=== PATIENT | female | born 1975 | race Hispanic/Latino ===

== ENCOUNTER → 2017-08-10 | Outpatient (CLI) | payer OTHER ==
[~2017-08-10] MED LIST: ENAL10TA PO; ESOM20CA34 PO; FOLI-114 PO; OMEG-125 PO
[2017-08-10 14:42] LABS: BASOPHILS % (AUTO) 0.6 % (0.0-5.0); HEMATOCRIT 38.5 % (36-48); LYMPHOCYTES % (AUTO) 23.3 % (21.0-51.0); MEAN CORPUSCULAR HEMOGLOBIN 27.7 pg (27.0-33.0); MEAN CORPUSCULAR VOLUME 83.7 fL (79-99); MONOCYTES % (AUTO) 5.7 % (3.0-13.0); NEUTROPHILS % (AUTO) 67.4 % (40.0-77.0); PLATELET COUNT (AUTO) 372 K/uL (130-400); RED CELL DISTRIBUTION WIDTH 14.5 % (11.0-15.5); WHITE BLOOD COUNT (AUTO) 4.3 K/uL (4.8-10.8)
[2017-08-10 15:07] LABS: ALBUMIN 3.4 g/dL (3.5-5.0); BILIRUBIN,TOTAL 0.3 mg/dL (0.2-1.0); CREATININE 0.6 mg/dL (0.5-1.5); POTASSIUM 3.9 mmol/L (3.5-5.1); TOTAL PROTEIN, SERUM 7.5 g/dL (6.0-8.3)
== END | disposition home or self-care (01) ==
LOC: RAH 14:08
PROVIDERS: ATTEND Internal Medicine
DX: Z13.220 Encounter for screening for lipoid disorders (principal); M47.26 Other spondylosis with radiculopathy, lumbar region; M48.061 Spinal stenosis, lumbar region without neurogenic claudication; M25.78 Osteophyte, vertebrae; I10 Essential (primary) hypertension; E78.2 Mixed hyperlipidemia
CPT/HCPCS: 36415; 72100; 80053; 80061; 85025

== ENCOUNTER → 2017-08-18 | Outpatient (CLI) | payer OTHER | END | disposition home or self-care (01) | LOC: RAH 15:59 | PROVIDERS: ATTEND Internal Medicine | DX: Z12.31 Encounter for screening mammogram for malignant neoplasm of breast (principal) | CPT/HCPCS: 77067 ==

== ENCOUNTER → 2017-09-06 | Outpatient (CLI) | payer OTHER | END | disposition home or self-care (01) | LOC: LAB 16:23 | PROVIDERS: ATTEND Internal Medicine | DX: R68.83 Chills (without fever) (principal) | CPT/HCPCS: 87804 ==

== ENCOUNTER → 2018-04-27 | Outpatient (CLI) | payer OTHER ==
[2018-04-27 08:44] LABS: BASOPHILS % (AUTO) 3.4 % (0.0-5.0); EOSINOPHILS % (AUTO) 2.3 % (0.0-8.0); HEMATOCRIT 40.3 % (36-48); LYMPHOCYTES % (AUTO) 20.5 % (21.0-51.0); MEAN CORPUSCULAR HEMOGLOBIN 30.9 pg (27.0-33.0); MEAN CORPUSCULAR HGB CONC 34.1 g/dL (32.0-36.0); MEAN CORPUSCULAR VOLUME 90.6 fL (79-99); MONOCYTES % (AUTO) 5.1 % (3.0-13.0); NEUTROPHILS % (AUTO) 68.7 % (40.0-77.0); PLATELET COUNT (AUTO) 370 K/uL (130-400); RED BLOOD CELL COUNT(AUTO) 4.44 MIL/uL (4.00-5.50); RED CELL DISTRIBUTION WIDTH 12.3 % (11.0-15.5); WHITE BLOOD COUNT (AUTO) 7.1 K/uL (4.8-10.8)
[2018-04-27 08:54] LABS: ALBUMIN 3.3 g/dL (3.5-5.0); BILIRUBIN,TOTAL 0.3 mg/dL (0.2-1.0); CREATININE 0.7 mg/dL (0.5-1.5); POTASSIUM 4.9 mmol/L (3.5-5.1); TOTAL PROTEIN, SERUM 7.5 g/dL (6.0-8.3)
== END | disposition home or self-care (01) ==
LOC: LAB 08:17
PROVIDERS: ATTEND Internal Medicine
DX: I10 Essential (primary) hypertension (principal); E78.2 Mixed hyperlipidemia
CPT/HCPCS: 36415; 80053; 80061; 82043; 82570; 85025

== ENCOUNTER → 2018-08-29 | Outpatient (CLI) | payer OTHER ==
[2018-08-29 09:31] LABS: BASOPHILS % (AUTO) 0.8 % (0.0-5.0); HEMATOCRIT 41.5 % (36-48); LYMPHOCYTES % (AUTO) 23.4 % (21.0-51.0); MEAN CORPUSCULAR HEMOGLOBIN 30.3 pg (27.0-33.0); MEAN CORPUSCULAR HGB CONC 33.7 g/dL (32.0-36.0); MEAN CORPUSCULAR VOLUME 89.9 fL (79-99); MONOCYTES % (AUTO) 5.7 % (3.0-13.0); NEUTROPHILS % (AUTO) 68.1 % (40.0-77.0); NUCLEATED RED BLOOD CELLS 0.1 % (0.0-0.19); PLATELET COUNT (AUTO) 395 K/uL (130-400); RED BLOOD CELL COUNT(AUTO) 4.62 MIL/uL (4.00-5.50); RED CELL DISTRIBUTION WIDTH 12.6 % (11.0-15.5); WHITE BLOOD COUNT (AUTO) 6.8 K/uL (4.8-10.8)
[2018-08-29 09:43] LABS: ALBUMIN 3.6 g/dL (3.5-5.0); BILIRUBIN,TOTAL 0.4 mg/dL (0.2-1.0); CREATININE 0.6 mg/dL (0.5-1.5); TOTAL PROTEIN, SERUM 7.9 g/dL (6.0-8.3)
== END | disposition home or self-care (01) ==
LOC: LAB 08:44
PROVIDERS: ATTEND Internal Medicine
DX: I10 Essential (primary) hypertension (principal); E78.2 Mixed hyperlipidemia
CPT/HCPCS: 36415; 80053; 80061; 82043; 85025

== ENCOUNTER → 2019-03-15 | Outpatient (CLI) | payer OTHER ==
[2019-03-15 12:07] LABS: BASOPHILS % (AUTO) 0.6 % (0.0-5.0); EOSINOPHILS % (AUTO) 1.7 % (0.0-8.0); HEMATOCRIT 37.8 % (36-48); LYMPHOCYTES % (AUTO) 27.3 % (21.0-51.0); MEAN CORPUSCULAR HEMOGLOBIN 30.7 pg (27.0-33.0); MEAN CORPUSCULAR HGB CONC 33.7 g/dL (32.0-36.0); MONOCYTES % (AUTO) 4.9 % (3.0-13.0); NEUTROPHILS % (AUTO) 65.5 % (40.0-77.0); NUCLEATED RED BLOOD CELLS 0.1 % (0.0-0.19); PLATELET COUNT (AUTO) 407 K/uL (130-400); RED BLOOD CELL COUNT(AUTO) 4.15 MIL/uL (4.00-5.50); RED CELL DISTRIBUTION WIDTH 12.7 % (11.0-15.5); WHITE BLOOD COUNT (AUTO) 8.8 K/uL (4.8-10.8)
[2019-03-15 12:12] LABS: HEMOGLOBIN A1C 5.1 % (4.0-6.0)
[2019-03-15 12:27] LABS: ALBUMIN 3.6 g/dL (3.5-5.0); BILIRUBIN,TOTAL 0.8 mg/dL (0.2-1.0); CREATININE 0.6 mg/dL (0.5-1.5); POTASSIUM 4.1 mmol/L (3.5-5.1); THYROID STIMULATING HORMONE 2.48 uIU/mL (0.36-3.74); TOTAL PROTEIN, SERUM 7.9 g/dL (6.0-8.3)
== END | disposition home or self-care (01) ==
LOC: LAB 11:02
PROVIDERS: ATTEND Internal Medicine
DX: Z13.29 Encounter for screening for other suspected endocrine disorder (principal); Z13.220 Encounter for screening for lipoid disorders; I10 Essential (primary) hypertension; E78.2 Mixed hyperlipidemia; Z83.3 Family history of diabetes mellitus
CPT/HCPCS: 36415; 80053; 80061; 82043; 83036; 84443; 85025

== ENCOUNTER → 2019-03-17 | Outpatient (CLI) | payer OTHER | END | disposition home or self-care (01) | LOC: RAH 12:38 | PROVIDERS: ATTEND Internal Medicine | DX: Z12.31 Encounter for screening mammogram for malignant neoplasm of breast (principal) | CPT/HCPCS: 77067 ==

== ENCOUNTER 2019-04-07 06:42 | Day surgery (SDC) | payer OTHER ==
[~2019-04-07] VITALS: Ht 160 cm; Wt 91.6 kg
[~2019-04-07 06:42] MED LIST changes: -ESOM20CA34 PO; -FOLI-114 PO; +MULT1CAP32 PO; -OMEG-125 PO; +SODIUM CHLORIDE 0.9% 1000ML 1,000 ML IV ONE
[2019-04-07 08:45] VITALS: BP 140/71
[2019-04-07] MEDS ORDERED: ATOR20TA65 PO (09:00)
[2019-04-07] MEDS ORDERED: OMEP40CA37 PO (09:00)
[2019-04-07 10:20] VITALS: BP 113/56
[2019-04-07 10:25] VITALS: BP 116/70
[2019-04-07 10:30] VITALS: BP 125/78
[2019-04-07 10:37] VITALS: BP 128/74
[2019-04-07 10:40] VITALS: BP 130/75
== END 2019-04-07 10:55 | disposition home or self-care (01) ==
LOC: ENDO 06:42 → DAH 06:42 → ENDO 10:55
PROVIDERS: ATTEND Internal Medicine
DX: K57.30 Diverticulosis of large intestine without perforation or abscess without bleeding (principal); K64.0 First degree hemorrhoids; K21.9 Gastro-esophageal reflux disease without esophagitis; E66.9 Obesity, unspecified; I10 Essential (primary) hypertension; E78.5 Hyperlipidemia, unspecified; Z79.899 Other long term (current) drug therapy; Z80.0 Family history of malignant neoplasm of digestive organs; Z98.51 Tubal ligation status; Z90.49 Acquired absence of other specified parts of digestive tract; Z98.890 Other specified postprocedural states; Z80.52 Family history of malignant neoplasm of bladder
CPT/HCPCS: 45378; J7030

== ENCOUNTER 2020-02-29 18:17 | Emergency (ER) | payer OTHER ==
[~2020-02-29 18:17] MED LIST changes: +ATOR20TA65 PO; +OMEP40CA13 PO; -SODIUM CHLORIDE 0.9% 1000ML 1,000 ML IV ONE
[2020-02-29 20:45] LABS: APPEARANCE,URINE SL CLOUDY (CLEAR); BILIRUBIN,URINE SMALL (NEGATIVE); COLOR,URINE YELLOW (YELLOW); GLUCOSE, URINE (UA) NEGATIVE (NEGATIVE); KETONES,URINE NEGATIVE (NEGATIVE); LEUKOCYTE ESTERASE ,URINE NEGATIVE (NEGATIVE); NITRATE,URINE POSITIVE (NEGATIVE); OCCULT BLOOD,URINE MODERATE (NEGATIVE); PH,URINE 5.5 (5.0-8.0); PROTEIN,URINE TRACE mg/dL (NEGATIVE); UROBILINOGEN,URINE 0.2 mg/dL (0.2-1.0)
[2020-02-29 20:58] LABS: RBC,URINE 26-50 /HPF (0-1)
[2020-02-29 20:59] LABS: BACTERIA,URINE Moderate /HPF (None Seen); SQUAMOUS EPITHELIAL CELL,UR Few /HPF (0-2)
[2020-02-29 21:00] LABS: MUCUS,URINE Few LPF (None Seen)
[2020-02-29] MEDS ORDERED: CEFTRIAXONE SODIUM 1 GM ONE (22:28)
== END 2020-02-29 22:51 | disposition home or self-care (01) ==
LOC: EDH 18:17
DX: N39.0 Urinary tract infection, site not specified (principal); I10 Essential (primary) hypertension; E78.00 Pure hypercholesterolemia, unspecified
CPT/HCPCS: 76856; 81001; 81025; 87077; 87088; 87186; 96372; 99284; J0696

== ENCOUNTER → 2020-03-18 | Outpatient (CLI) | payer OTHER | END | disposition home or self-care (01) | LOC: RAH 08:27 | PROVIDERS: ATTEND Internal Medicine | DX: Z12.31 Encounter for screening mammogram for malignant neoplasm of breast (principal) | CPT/HCPCS: 77067 ==

== ENCOUNTER → 2020-05-03 | Outpatient (CLI) | payer OTHER ==
[~2020-05-03] MED LIST changes: -ENAL10TA PO; +ENAL10TA18 PO
[2020-05-03 13:06] LABS: BASOPHILS % (AUTO) 0.8 % (0.0-5.0); EOSINOPHILS % (AUTO) 2.9 % (0.0-8.0); HEMATOCRIT 43.4 % (36-48); LYMPHOCYTES % (AUTO) 29.9 % (21.0-51.0); MEAN CORPUSCULAR HGB CONC 32.7 g/dL (32.0-36.0); MEAN CORPUSCULAR VOLUME 91.6 fL (79-99); MONOCYTES % (AUTO) 6.7 % (3.0-13.0); NEUTROPHILS % (AUTO) 59.4 % (40.0-77.0); PLATELET COUNT (AUTO) 498 K/uL (130-400); RED BLOOD CELL COUNT(AUTO) 4.74 MIL/uL (4.00-5.50); RED CELL DISTRIBUTION WIDTH 12.2 % (11.0-15.5); WHITE BLOOD COUNT (AUTO) 6.6 K/uL (4.8-10.8)
[2020-05-03 13:25] LABS: ALBUMIN 3.8 g/dL (3.5-5.0); BILIRUBIN,TOTAL 0.3 mg/dL (0.2-1.0); CREATININE 0.6 mg/dL (0.5-1.5); POTASSIUM 4.3 mmol/L (3.5-5.1); TOTAL PROTEIN, SERUM 7.9 g/dL (6.0-8.3)
== END | disposition home or self-care (01) ==
LOC: LAB 11:45
PROVIDERS: ATTEND Internal Medicine Gastroenterology
DX: R10.32 Left lower quadrant pain (principal)
CPT/HCPCS: 36415; 80053; 85025

== ENCOUNTER → 2022-01-27 | Outpatient (CLI) | payer OTHER, MEDICAID ==
[~2022-01-27] MED LIST changes: -OMEP40CA13 PO; +OMEP40CA21 PO
== END | disposition home or self-care (01) ==
LOC: RAH 08:44
PROVIDERS: ATTEND Nurse Practitioner Family
DX: Z00.01 Encounter for general adult medical examination with abnormal findings (principal); R92.2 Inconclusive mammogram
CPT/HCPCS: 76641; 77065

== ENCOUNTER → 2023-10-06 | Outpatient (CLI) | payer OTHER ==
[~2023-10-06] MED LIST changes: +ENAL-89 PO; -ENAL10TA18 PO
[2023-10-06 12:57] LABS: BASOPHILS # (AUTO) 0.05 K/uL (0.00-0.20); BASOPHILS % (AUTO) 0.6 % (0.0-5.0); EOSINOPHILS # (AUTO) 0.12 K/uL (0.00-0.70); EOSINOPHILS % (AUTO) 1.5 % (0.0-8.0); HEMATOCRIT 42.6 % (36-48); IMMATURE GRANULOCYTE ABSOLUTE 0.03 K/uL (0-1); LYMPHOCYTES # (AUTO) 2.3 K/uL (1.0-4.8); LYMPHOCYTES % (AUTO) 28.4 % (21.0-51.0); MEAN CORPUSCULAR HEMOGLOBIN 29.6 pg (27.0-33.0); MEAN CORPUSCULAR HGB CONC 32.9 g/dL (32.0-36.0); MEAN CORPUSCULAR VOLUME 90.1 fL (79-99); MONOCYTES # (AUTO) 0.5 K/uL (0.1-1.0); MONOCYTES % (AUTO) 5.6 % (3.0-13.0); NEUTROPHILS # (AUTO) 5.1 K/uL (1.8-7.7); NEUTROPHILS % (AUTO) 63.5 % (40.0-77.0); PLATELET COUNT (AUTO) 320 K/uL (130-400); RED BLOOD CELL COUNT(AUTO) 4.73 MIL/uL (4.00-5.50); RED CELL DISTRIBUTION WIDTH 11.9 % (11.0-15.5); WHITE BLOOD COUNT (AUTO) 8.1 K/uL (4.8-10.8)
[2023-10-06 13:21] LABS: BILIRUBIN,TOTAL 0.4 mg/dL (0.2-1.0); CREATININE 0.8 mg/dL (0.5-1.5); POTASSIUM 3.6 mmol/L (3.5-5.1); THYROID STIMULATING HORMONE 4.04 uIU/mL (0.36-3.74)
[2023-10-06 13:25] LABS: APPEARANCE,URINE CLOUDY (CLEAR); BILIRUBIN,URINE NEGATIVE (NEGATIVE); COLOR,URINE YELLOW (YELLOW); GLUCOSE, URINE (UA) NEGATIVE (NEGATIVE); KETONES,URINE NEGATIVE (NEGATIVE); LEUKOCYTE ESTERASE ,URINE 500 Leu/uL (NEGATIVE); NITRATE,URINE NEGATIVE (NEGATIVE); OCCULT BLOOD,URINE MODERATE (NEGATIVE); PROTEIN,URINE 70 mg/dL (NEGATIVE); UROBILINOGEN,URINE 0.2 mg/dL (0.2-1.0)
[2023-10-06 13:30] LABS: ADD UA MICROSCOPIC YES
[2023-10-06 13:48] LABS: BACTERIA,URINE FEW /HPF (None Seen); MUCUS,URINE RARE LPF (None Seen); RBC,URINE >100 /HPF (0-1); SQUAMOUS EPITHELIAL CELL,UR FEW /HPF (0-2); WBC CLUMP FEW /HPF (0-1); WBC,URINE TNTC /HPF (0-1)
[2023-10-06 14:22] LABS: ERYTHROCYTE SEDIMENTATION RATE 35 MM/HR (0-20)
== END | disposition home or self-care (01) ==
LOC: LAB 12:06
PROVIDERS: ATTEND Nurse Practitioner Family
DX: M17.12 Unilateral primary osteoarthritis, left knee (principal); I10 Essential (primary) hypertension; N20.0 Calculus of kidney; E78.00 Pure hypercholesterolemia, unspecified; M25.562 Pain in left knee; E55.9 Vitamin D deficiency, unspecified; E03.9 Hypothyroidism, unspecified; R73.09 Other abnormal glucose
CPT/HCPCS: 36415; 73562; 80053; 80061; 81001; 82306; 83036; 83525; 84439; 84443; 84481; 85025; 85651; 87077; 87088; 87186

== ENCOUNTER → 2023-10-26 | Outpatient (CLI) | payer OTHER | END | disposition home or self-care (01) | LOC: RAH 14:18 | PROVIDERS: ATTEND Nurse Practitioner Family | DX: M25.562 Pain in left knee (principal); M54.50 Low back pain, unspecified | CPT/HCPCS: 93926; 93971 ==

== ENCOUNTER 2024-01-11 15:12 | Emergency (ER) | payer OTHER ==
[~2024-01-11] VITALS: Ht 157.5 cm; Wt 97.5 kg
[2024-01-11 15:37] LABS: BASOPHILS # (AUTO) 0.04 K/uL (0.00-0.20); BASOPHILS % (AUTO) 0.6 % (0.0-5.0); EOSINOPHILS # (AUTO) 0.01 K/uL (0.00-0.70); EOSINOPHILS % (AUTO) 0.1 % (0.0-8.0); HEMATOCRIT 40.6 % (36-48); IMMATURE GRANULOCYTE ABSOLUTE 0.02 K/uL (0-1); LYMPHOCYTES # (AUTO) 1.3 K/uL (1.0-4.8); LYMPHOCYTES % (AUTO) 19.2 % (21.0-51.0); MEAN CORPUSCULAR HEMOGLOBIN 29.7 pg (27.0-33.0); MEAN CORPUSCULAR HGB CONC 33.3 g/dL (32.0-36.0); MEAN CORPUSCULAR VOLUME 89.4 fL (79-99); MONOCYTES # (AUTO) 0.5 K/uL (0.1-1.0); MONOCYTES % (AUTO) 6.8 % (3.0-13.0); PLATELET COUNT (AUTO) 341 K/uL (130-400); RED BLOOD CELL COUNT(AUTO) 4.54 MIL/uL (4.00-5.50); RED CELL DISTRIBUTION WIDTH 12.1 % (11.0-15.5); WHITE BLOOD COUNT (AUTO) 6.8 K/uL (4.8-10.8)
[2024-01-11] MEDS: ACETAMINOPHEN 500 MG TABLET PO ONE (15:39)
[2024-01-11 15:49] LABS: CREATININE 0.9 mg/dL (0.5-1.0); POTASSIUM 3.7 mmol/L (3.5-5.1)
[2024-01-11 15:52] LABS: SARS-CoV-2, RNA, NAAT NEGATIVE SARS CoV-2 (NEGATIVE)
[2024-01-11 15:53] LABS: RAPID GROUP A STREP negative (NEGATIVE)
[2024-01-11 15:54] LABS: BILIRUBIN,TOTAL 0.4 mg/dL (0.2-1.0); TOTAL PROTEIN, SERUM 8.6 g/dL (6.0-8.3)
[2024-01-11 16:00] LABS: INFLUENZA TYPE B Negative For Type B (NEGATIVE)
[2024-01-11 16:04] LABS: INFLUENZA TYPE A Positive For Type A (NEGATIVE)
[2024-01-11 16:50] VITALS: TEMP 100.3
[2024-01-11] MEDS: OSELTAMIVIR PHOSPHATE 75 MG CAP PO ONE (17:26)
[2024-01-11] MEDS: 0.9%NACL 1000ML 1,002 ML IV ONE (17:27)
[2024-01-11] MEDS ORDERED: AZIT500T4 PO (18:57)
[2024-01-11] MEDS ORDERED: OSEL75 PO (18:57)
[2024-01-11 19:08] LABS: APPEARANCE,URINE CLOUDY (CLEAR); BILIRUBIN,URINE NEGATIVE (NEGATIVE); COLOR,URINE LIGHT-YELLOW (YELLOW); GLUCOSE, URINE (UA) NEGATIVE (NEGATIVE); KETONES,URINE 10 mg/dL (NEGATIVE); LEUKOCYTE ESTERASE ,URINE 500 Leu/uL (NEGATIVE); NITRATE,URINE NEGATIVE (NEGATIVE); OCCULT BLOOD,URINE MODERATE (NEGATIVE); PH,URINE 6.5 (5.0-8.0); PROTEIN,URINE 10 mg/dL (NEGATIVE); UROBILINOGEN,URINE 0.2 mg/dL (0.2-1.0)
[2024-01-11 19:10] LABS: ADD UA MICROSCOPIC YES
[2024-01-11 19:14] LABS: BACTERIA,URINE RARE /HPF (None Seen); MUCUS,URINE RARE LPF (None Seen); SQUAMOUS EPITHELIAL CELL,UR FEW /HPF (0-2); WBC,URINE TNTC /HPF (0-1)
[2024-01-11 19:29] VITALS: BP 118/78; PULSE 73; RESP 20; O2SAT 95
== END 2024-01-11 19:31 | disposition home or self-care (01) ==
LOC: EDH 15:12
DX: R50.9 Fever, unspecified (principal); M79.10 Myalgia, unspecified site; R09.81 Nasal congestion; I10 Essential (primary) hypertension; E78.00 Pure hypercholesterolemia, unspecified; Z20.822 Contact with and (suspected) exposure to COVID-19; Z79.899 Other long term (current) drug therapy; Z90.49 Acquired absence of other specified parts of digestive tract; Z98.890 Other specified postprocedural states
CPT/HCPCS: 99285; 71045; 87635; 80053; 85025; 87040 ×2; 87077; 87088; 87186; 87880; 87804 ×2; 83605; 81001; 36415; J7030

== ENCOUNTER → 2024-04-18 | Outpatient (CLI) | payer OTHER ==
[~2024-04-18] MED LIST changes: +AZIT500T4 PO; +OSEL75 PO
[2024-04-18 08:39] LABS: BASOPHILS # (AUTO) 0.04 K/uL (0.00-0.20); BASOPHILS % (AUTO) 0.7 % (0.0-5.0); EOSINOPHILS % (AUTO) 1.8 % (0.0-8.0); HEMATOCRIT 37.4 % (36-48); IMMATURE GRANULOCYTE ABSOLUTE 0.02 K/uL (0-1); LYMPHOCYTES # (AUTO) 2.2 K/uL (1.0-4.8); LYMPHOCYTES % (AUTO) 39.1 % (21.0-51.0); MEAN CORPUSCULAR HEMOGLOBIN 29.8 pg (27.0-33.0); MEAN CORPUSCULAR HGB CONC 32.9 g/dL (32.0-36.0); MEAN CORPUSCULAR VOLUME 90.6 fL (79-99); MONOCYTES # (AUTO) 0.3 K/uL (0.1-1.0); MONOCYTES % (AUTO) 5.5 % (3.0-13.0); NEUTROPHILS % (AUTO) 52.5 % (40.0-77.0); PLATELET COUNT (AUTO) 422 K/uL (130-400); RED BLOOD CELL COUNT(AUTO) 4.13 MIL/uL (4.00-5.50); RED CELL DISTRIBUTION WIDTH 12.3 % (11.0-15.5); WHITE BLOOD COUNT (AUTO) 5.7 K/uL (4.8-10.8)
[2024-04-18 08:52] LABS: APPEARANCE,URINE CLOUDY (CLEAR); BILIRUBIN,URINE NEGATIVE (NEGATIVE); COLOR,URINE YELLOW (YELLOW); GLUCOSE, URINE (UA) NEGATIVE (NEGATIVE); KETONES,URINE NEGATIVE (NEGATIVE); LEUKOCYTE ESTERASE ,URINE LARGE Leu/uL (NEGATIVE); NITRATE,URINE NEGATIVE (NEGATIVE); OCCULT BLOOD,URINE LARGE (NEGATIVE); PROTEIN,URINE 30 mg/dL (NEGATIVE); UROBILINOGEN,URINE 0.2 mg/dL (0.2-1.0)
[2024-04-18 08:52] LABS: HEMOGLOBIN A1C 4.9 % (4.0-6.0)
[2024-04-18 08:56] LABS: ADD UA MICROSCOPIC YES
[2024-04-18 09:05] LABS: BACTERIA,URINE Moderate /HPF (None Seen); WBC,URINE 26-50 /HPF (0-1)
[2024-04-18 09:08] LABS: ALBUMIN 3.7 g/dL (3.5-5.0); BILIRUBIN,TOTAL 0.4 mg/dL (0.2-1.0); CREATININE 0.9 mg/dL (0.5-1.0); POTASSIUM 3.8 mmol/L (3.5-5.1); THYROID STIMULATING HORMONE 5.58 uIU/mL (0.36-3.74); TOTAL PROTEIN, SERUM 8.2 g/dL (6.0-8.3)
[2024-04-18 09:42] LABS: ERYTHROCYTE SEDIMENTATION RATE 53 MM/HR (0-30)
== END | disposition home or self-care (01) ==
LOC: LAB 08:08
PROVIDERS: ATTEND Nurse Practitioner Family
DX: M47.816 Spondylosis without myelopathy or radiculopathy, lumbar region (principal); M48.05 Spinal stenosis, thoracolumbar region; M54.50 Low back pain, unspecified; I87.8 Other specified disorders of veins
CPT/HCPCS: 36415; 72100; 80053; 80061; 81001; 82306; 83036; 83525; 84439; 84443; 84481; 85025; 85651; 87086; 87186

== ENCOUNTER → 2024-05-24 | Outpatient (CLI) | payer OTHER | END | disposition home or self-care (01) | LOC: RAH 15:22 | PROVIDERS: ATTEND Nurse Practitioner Family | DX: M47.816 Spondylosis without myelopathy or radiculopathy, lumbar region (principal); M48.05 Spinal stenosis, thoracolumbar region; M54.50 Low back pain, unspecified | CPT/HCPCS: 72148 ==

== ENCOUNTER 2024-05-31 19:40 | Emergency (ER) | payer OTHER ==
[~2024-05-31] VITALS: Ht 157.5 cm; Wt 99.8 kg
[~2024-05-31 19:40] MED LIST changes: -AZIT500T4 PO; -ENAL-89 PO; +IBUP-2077 PO; +LOSA50TA64 PO; -MULT1CAP32 PO; -OMEP40CA21 PO; -OSEL75 PO; +VITAMIN D3 PO
[2024-05-31 20:33] VITALS: BP 137/81; PULSE 90; RESP 20; TEMP 98.3; O2SAT 97
[2024-05-31] MEDS ORDERED: KETO10TA2 PO (20:36)
== END 2024-05-31 20:37 | disposition home or self-care (01) ==
LOC: EDH 19:40
DX: S83.91XA Sprain of unspecified site of right knee, initial encounter (principal); S80.01XA Contusion of right knee, initial encounter; E78.00 Pure hypercholesterolemia, unspecified; I10 Essential (primary) hypertension; Z79.899 Other long term (current) drug therapy; Z90.49 Acquired absence of other specified parts of digestive tract; Z98.51 Tubal ligation status; W18.39XA Other fall on same level, initial encounter; Y93.89 Activity, other specified; Y92.89 Other specified places as the place of occurrence of the external cause; Y99.8 Other external cause status
CPT/HCPCS: 73562

== ENCOUNTER → 2024-10-06 | Outpatient (CLI) | payer OTHER ==
[~2024-10-06] MED LIST changes: +KETO10TA2 PO
[2024-10-06 08:43] LABS: BILIRUBIN,URINE NEGATIVE (NEGATIVE); COLOR,URINE YELLOW (YELLOW); GLUCOSE, URINE (UA) NEGATIVE (NEGATIVE); KETONES,URINE NEGATIVE (NEGATIVE); LEUKOCYTE ESTERASE ,URINE 500 Leu/uL (NEGATIVE); NITRATE,URINE NEGATIVE (NEGATIVE); OCCULT BLOOD,URINE SMALL (NEGATIVE); PROTEIN,URINE 50 mg/dL (NEGATIVE); UROBILINOGEN,URINE 0.2 mg/dL (0.2-1.0)
[2024-10-06 08:46] LABS: BASOPHILS # (AUTO) 0.05 K/uL (0.00-0.20); BASOPHILS % (AUTO) 0.9 % (0.0-5.0); EOSINOPHILS # (AUTO) 0.09 K/uL (0.00-0.70); EOSINOPHILS % (AUTO) 1.6 % (0.0-8.0); HEMATOCRIT 38.8 % (36-48); IMMATURE GRANULOCYTE ABSOLUTE 0.01 K/uL (0-1); LYMPHOCYTES # (AUTO) 1.9 K/uL (1.0-4.8); LYMPHOCYTES % (AUTO) 32.7 % (21.0-51.0); MEAN CORPUSCULAR HEMOGLOBIN 29.3 pg (27.0-33.0); MEAN CORPUSCULAR HGB CONC 32.7 g/dL (32.0-36.0); MEAN CORPUSCULAR VOLUME 89.4 fL (79-99); MONOCYTES # (AUTO) 0.3 K/uL (0.1-1.0); MONOCYTES % (AUTO) 5.9 % (3.0-13.0); NEUTROPHILS # (AUTO) 3.4 K/uL (1.8-7.7); NEUTROPHILS % (AUTO) 58.7 % (40.0-77.0); PLATELET COUNT (AUTO) 394 K/uL (130-400); RED BLOOD CELL COUNT(AUTO) 4.34 MIL/uL (4.00-5.50); WHITE BLOOD COUNT (AUTO) 5.8 K/uL (4.8-10.8)
[2024-10-06 08:47] LABS: ADD UA MICROSCOPIC YES; APPEARANCE,URINE HAZY (CLEAR)
[2024-10-06 08:55] LABS: BACTERIA,URINE FEW /HPF (None Seen); MUCUS,URINE FEW LPF (None Seen); RBC,URINE 26-50 /HPF (0-1); SQUAMOUS EPITHELIAL CELL,UR FEW /HPF (0-2); WBC,URINE TNTC /HPF (0-1)
[2024-10-06 09:09] LABS: HEMOGLOBIN A1C 5.2 % (4.0-6.0)
[2024-10-06 09:26] LABS: ALBUMIN 3.7 g/dL (3.5-5.0); BILIRUBIN,TOTAL 0.3 mg/dL (0.2-1.0); CREATININE 0.8 mg/dL (0.5-1.0); POTASSIUM 4.2 mmol/L (3.5-5.1); THYROID STIMULATING HORMONE 4.54 uIU/mL (0.36-3.74); TOTAL PROTEIN, SERUM 8.4 g/dL (6.0-8.3)
[2024-10-06 11:10] LABS: ERYTHROCYTE SEDIMENTATION RATE 64 MM/HR (0-30)
== END | disposition home or self-care (01) ==
LOC: LAB 10-05 16:24
PROVIDERS: ATTEND Nurse Practitioner Family
DX: I10 Essential (primary) hypertension (principal); E78.00 Pure hypercholesterolemia, unspecified; E55.9 Vitamin D deficiency, unspecified; E03.9 Hypothyroidism, unspecified; N95.1 Menopausal and female climacteric states; R53.82 Chronic fatigue, unspecified; N39.0 Urinary tract infection, site not specified
CPT/HCPCS: 36415; 80053; 80061; 81001; 82306; 83036; 83525; 84439; 84443; 84481; 85025; 85651; 87086

== ENCOUNTER 2024-11-29 20:37 | Inpatient (IN) | payer OTHER ==
[~2024-11-29] VITALS: Ht 157.5 cm; Wt 103.9 kg
[2024-11-29 21:01] LABS: ADD UA MICROSCOPIC YES; APPEARANCE,URINE CLOUDY (CLEAR); BILIRUBIN,URINE NEGATIVE (NEGATIVE); COLOR,URINE LIGHT-YELLOW (YELLOW); GLUCOSE, URINE (UA) NEGATIVE (NEGATIVE); KETONES,URINE NEGATIVE (NEGATIVE); LEUKOCYTE ESTERASE ,URINE 500 Leu/uL (NEGATIVE); NITRATE,URINE NEGATIVE (NEGATIVE); OCCULT BLOOD,URINE MODERATE (NEGATIVE); PH,URINE 6.5 (5.0-8.0); PROTEIN,URINE NEGATIVE (NEGATIVE); UROBILINOGEN,URINE 0.2 mg/dL (0.2-1.0)
[2024-11-29 21:06] LABS: BACTERIA,URINE RARE /HPF (None Seen); MUCUS,URINE RARE LPF (None Seen); SQUAMOUS EPITHELIAL CELL,UR RARE /HPF (0-2); WBC,URINE 26-50 /HPF (0-1); YEAST,URINE BUDDING FEW /HPF (None Seen)
--- NOTE | 2024-11-29 21:15 | ERN ---
ED Note History of Present Illness Stated Complaint: C/O PAIN TO RT UPPER BACK Chief Complaint: Back Pain-No Injury Time Seen by MD: 20:54 Dictation: This is a 49-year-old female who presented to the emergency room with complaints of right-sided flank pain for the past couple of days. Denied any fever chills or rigors no obvious gross hematuria. She was recently treated a few weeks ago for a UTI. She has pain mostly on the right side upper flank area and CVA angle. Pain has been excruciating for the past 2 days but worse today. History of lifting any heavy weights or chronic back pain. She has a history of kidney stones many years ago but does not recall the details Temperature 99 pulse 78 respirations 20 blood pressure 156/76 with a pulse oximetry of 95% on room air Her chronic medical problems include hypertension high cholesterol and morbid obesity Allergies: Coded Allergies: No Known Allergies (Unverified Allergy, Unknown, 02/26/17) Home Meds Active Scripts Ketorolac Tromethamine (Ketorolac Tromethamine) 10 Mg Tablet, 10 MG PO BID for 5 Days, #10 TAB Prov:LUIS ALDANA 05/31/24 Reported Medications [Vitamin D3] No Conflict Check, 1000 MG PO AM 05/31/24 Ibuprofen (Ibuprofen 800 mg Tab) 800 Mg Tab, 800 MG PO Q6H PRN for PAIN, TAB 05/30/24 Losartan Potassium (Losartan Potassium) 50 Mg Tablet, 50 MG PO HS, TAB 05/30/24 Atorvastatin Calcium (Atorvastatin Calcium) 20 Mg Tablet, 20 MG PO HS, TAB 04/07/19 Past Medical History Past Medical History: High Cholesterol, Hypertension Surgical History: Appendectomy, Other Surgical History Other: UTERUS ABLATION; TUBAL LIGATION Family History: Negative Social History: Negative History: Not Applicable RN Note Reviewed/Agreed w/PFSH: Yes Review of System Dictation Constitutional: Negative for fever,chills, and weight loss Eyes: Negative for injury, pain,redness, and discharge ENT: Negative for injury,pain or swelling Cardiovascular: Negative for chest pain, palpitations, and edema Respiratory: Negative for shortness of breath, cough, and wheezing, Abdomen/GI: Negative for abdominal pain, nausea, vomiting, diarrhea, and constipation Back: Negative for injury and pain : Negative for injury, bleeding and discharge positive for medial right flank pain MS/Extremity: Negative for injury and deformity Skin: Negative for rash, and discoloration Neuro: Negative for headache, weakness, numbness, tingling, and seizure Psych: Negative for suicide ideation, homicidal ideation, and hallucinations Initial Vital Sign VS Vital Signs Date Time Temp Pulse Resp B/P (MAP) Pulse Ox O2 Delivery O2 Flow Rate FiO2 11/29/24 20:40 99.0 78 20 156/76 95 Room Air 11/30/24 00:01 0 21 Physical Exam Dictation General: awake, alert, NAD morbidly obese uncomfortable but not in distress Head/Face: Normocephalic, atraumatic Eyes: PERRL, EOMI, vision at baseline ENT: oral cavity clear, TMs clear, no signs of infection Neck: Trachea midline, supple, no nuchal rigidity Cardiovascular: RRR, normal S1/S2, No MRGs, no JVD Respiratory: CTAB, no respiratory distress, No rales or wheezes Abdomen: Soft, non-tender, non-distended, normal bowel sounds, no guarding or rebound. Positive for CV angle tenderness Skin: Warm, dry, normal turgor, no rash MS/Extremity: Pulses equal, no cyanosis, neurovascular intact, FROM Neuro: COAx4, GCS 15, strength 5/5, CN 2-12 intact, normal cerebellar exam, normal gait, Psych: Normal behavior, mood, and affect normal Extremities-trace edema without any palpable cords, Homans sign is negative Results (Laboratory/Radiology) Laboratory/Radiology Laboratory Tests Test 11/29/24 20:45 Urine Color LIGHT-YELLOW (YELLOW) Urine Appearance CLOUDY (CLEAR) H Urine pH 6.5 (5.0-8.0) Urine Specific [place] 1.010 (1.001-1.031) Urine Protein NEGATIVE mg/dL (NEGATIVE) Urine Glucose (UA) NEGATIVE mg/dL (NEGATIVE) Urine Ketones NEGATIVE mg/dL (NEGATIVE) Urine Occult Blood MODERATE (NEGATIVE) H Urine Nitrate NEGATIVE (NEGATIVE) Urine Bilirubin NEGATIVE mg/dL (NEGATIVE) Urine Urobilinogen 0.2 mg/dL (0.2-1.0) Urine Leukocyte Esterase 500 Rhiannon/uL (NEGATIVE) H Urine RBC 11-25 /HPF (0-1) H Urine WBC 26-50 /HPF (0-1) H Urine Squamous Epithelial Cells RARE /HPF (0-2) Urine Bacteria RARE /HPF (None Seen) Urine Yeast FEW /HPF (None Seen) Labs Reviewed?: Yes ED Course ED Course Orders Procedure Category Date Status Time Urinalysis Profile LAB 11/29/24 Complete 20:43 Culture Urine DAMIEN 11/29/24 In Process 21:02 0.9% Nacl 500ml PHA 11/29/24 Complete Iv.Soln (Ns 500ml 21:30 Ketorolac PHA 11/29/24 Complete Tromethamine 30mg/Ml 21:30 Ceftriaxone 1g Vial PHA 11/29/24 Complete (Rocephine 1g Inj) 23:00 Morphine 2mg Syg PHA 11/29/24 Complete (Morphine 2mg Syg) 23:00 Ct Abd/Pel Wo Con CT 11/29/24 Taken Renal/Appy 23:03 Current Medications Medications (Trade) Dose Ordered Sig/Nuria Route PRN Reason Start Time Stop Time Status Last Admin Dose Admin Ceftriaxone Sodium (ROCEphine 1G INJ) 1 gm ONCE ONCE IVPB 11/29/24 23:00 11/29/24 23:05 DC 11/29/24 23:58 Ketorolac Tromethamine (toRADol) 30 mg ONCE ONCE IVP 11/29/24 21:30 11/29/24 21:31 DC 11/29/24 23:58 Morphine Sulfate (morPHINE 2MG SYG) 2 mg ONCE ONCE IVP 11/29/24 23:00 11/29/24 23:05 DC 11/29/24 23:57 Sodium Chloride 500 ml @ 0 mls/hr ONCE ONCE IV 11/29/24 21:30 11/29/24 21:31 DC 11/29/24 23:58 Vital Signs Date Time Temp Pulse Resp B/P (MAP) Pulse Ox O2 Delivery O2 Flow Rate FiO2 11/30/24 00:01 99.0 78 18 148/72 98 Room Air* 0 21 11/29/24 20:40 99.0 78 20 156/76 95 Room Air We will perform diagnostic labs, advanced imaging and administer medications according to the patient's complaint. Once the results are available, will review and personally interpreted the labs to rule out any acute life- threatening emergency the trach require immediate intervention and treatment. I will then re-evaluate the patient after treatment and diagnostic exams have return to determine whether the patient requires any further testing, can safely be discharged home or need further admission to hospital for additional catherine tment and evaluation. Reviewed urinalysis which is positive for blood and leuko esterase. WBCs are increased suggestive of a UTI. CT scan of the abdomen and pelvis renal stone protocol revealed a very large staghorn shaped calculus on the right side Due to complicated UTI, and the size of the stone with some hydronephrosis on the right side, I recommended admission to the hospital for pain control, IV antibiotic therapy as well as urologist evaluation. She was agreeable 12:30 a.m. patient accepted by michelle mid-level provider for [facility] hospitalist group for admission and further management Medical Decision Making MDM MDM: Differential diagnosis: Pyelonephritis, lumbar radiculopathy, nephrolithiasis with renal colic, diverticulosis Rationale: Tests considered and ordered secondary to shared decision making include: labs, ECG and radiology Previous outside records reviewed: Old ER visits. Risk of complication and/or morbidity or mortality of patient management: None Medications-Per medication reconciliation Need for hospitalization: Patient does meet criteria for hospitalization. Need for emergency major/minor surgery: No There are no social concerns with this patient. Prescription drug management Prescriptions will include symptomatic care Patient's prior external medical records from other ER visits were reviewed by me as indicated. Prior testing and results from previous visits were reviewed. Prior tests were taken into account with medical decision making and resource utilization, independent historian/historians were used to obtain complete medical history. I independently interpreted the test that were performed, results were reviewed by me and considered findings on radiology if ordered. Medical management and examination interpretation discussions were had by me with other qualified healthcare professionals as indicated for the patient's care. Problem List Problem List: (1) Complicated urinary tract infection (2) Staghorn kidney stones (3) Hematuria (4) Right flank pain DX & DISP Disposition: Inpatient Decision to Admit Time: 00:22 Departure Impression: Primary Impression: Complicated urinary tract infection Additional Impressions: Staghorn kidney stones, Right flank pain Condition: Stable Additional Instructions: Patient was informed of all the diagnostic labs and procedures conducted in the emergency room today and demonstrated understanding of the results. I pe rsonally reviewed and interpreted all the diagnostic exams performed in the ER today. The patient will be admitted to the hospital for further treatment and evaluation. Disposition-admit to facility Condition-stable/guarded Course-uncertain at this time Pain status-decreased Assessment-exam unchanged Admission Certification- I certify that the patients status is appropriate and is based on my best clinical judgment and the patient's condition as documented in the medical records Referrals: MK MADERA (PCP) LUZ PEREYRA MD Nov 29, 2024 21:15
[2024-11-29] MEDS: morPHINE 2 MG SYG IVP ONE (23:57)
[2024-11-29] MEDS: ketOROlac 30MG VIAL (30MG/ML) IVP ONE (23:58)
[2024-11-29] MEDS: 0.9% NACL 500ML IV.SOLN 500 ML IV ONE (23:58)
[2024-11-29] MEDS: cefTRIAXone 1G VIAL IVPB ONE (23:58)
--- NOTE | 2024-11-30 00:23 | HMCIMG ---
CT ABD/PEL WO CON RENAL/APPY HISTORY: Right flank pain COMPARISON: None TECHNIQUE: Multiple sequential axial images of the abdomen and pelvis were obtained from the dome of the diaphragm through symphysis pubis. Patient was not given contrast through intravenous route. Oral contrast was not given. FINDINGS: No pleural effusion is seen bilaterally. There is no evidence of parenchymal disease or pulmonary nodule of the visualized lower lungs. Degenerative changes of the thoracolumbar spine are present. The heart is not enlarged. The liver, spleen, adrenal glands and pancreas are unremarkable. No hydronephrosis is seen on the left. There is a 3 cm right staghorn renal calculus. Mild right hydronephrosis is seen. Fecal material is seen in the colon. There are normal size retroperitoneal and mesenteric lymph nodes. No ascites is seen. The appendix is not seen. No definite CT evidence of acute sinusitis is seen. There is right ovarian cyst measuring 4.6 cm. Pelvic sidewalls are symmetric bilaterally. Bladder is well distended without wall thickening. IMPRESSION: 1. There is a 3 cm right staghorn renal calculus. Mild right hydronephrosis is seen. CT was performed with one or more following dose reduction techniques: automated exposure control, adjustment of the mA and kv according to patient's size, or use of a iterative reconstruction technique.
[2024-11-30] MEDS ORDERED: acetaMINOPHEN 325 MG TAB PO PRN (02:30)
[2024-11-30] MEDS ORDERED: HYDROcodone/APAP 5/325 1 TAB TABLET PO PRN (02:30)
[2024-11-30] MEDS ORDERED: ondanSETRON 4MG INJ IV PRN (02:30)
[2024-11-30] MEDS ORDERED: hydrALAZine 20MG/ML VIAL IV PRN ×2 (02:30→03:30)
--- NOTE | 2024-11-30 03:14 | HP ---
[facility] Date of Service: Nov 30, 2024 Time of Service: 02:51 PCP: Isaías Pemberton HISTORY OF PRESENT ILLNESS: This is a 49 year old female with past medical history of hyperlipidemia,hypertension and kidney stones who presents to the Ed for com plaints of right sided flank pain for the past 4 days .Patient states she has similar problems 3 weeks ago and went to see her PCP for which she was told she has a UTI and started on antibiotic.As per patient she completed the treatment however pain came back 4 days ago and pain intensity has been gradually increasing and persistent so she decided to come to the ED.Patient today pain is sharp.Patient reports she been taking Ibuprofen and alternating with Tylenol but to no relief. Seen and examined patient in the ED awake ,alert and coherent.Patient denies fever, chills, nausea, vomiting, chest pain, palpitation and shortness of suki aths. Latest vital signs temperature 99, heart rate 78, blood pressure 148/72 saturation 98% on room air. Urinalysis consistent with urinary tract infection. CT abdomen and pelvis without contrast result revealed there is a 3 cm right staghorn renal calculus. Mild right hydronephrosis is seen. While in the ER patient received 500 bolus of NS, Toradol 30 mg IV, Rocephin 1 g IV, morphine sulfate 2 mg IV. No labs ordered at this time. We will admit patient for further medical management. REVIEW OF SYSTEMS CONSTITUTIONAL: Denies fevers, chills, or night sweats. No unintentional weight loss reported. NEUROLOGICAL: Denies headache, amaurosis fugax, motor weakness, sensory deficit, vertigo/spinning sensation, gait abnormalities, or tremors. ENT: No hearing loss, otalgia, otorrhea, rhinitis, rhinorrhea, hoarseness, or sore throat. CARDIOVASCULAR: Denies any exertional angina, dyspnea on exertion, orthopnea, paroxysmal nocturnal dyspnea, palpitations, life-threatening arrhythmias, claudication. PULMONARY: Denies any shortness of breath, cough, phlegm/sputum, hemoptysis, pleuritic chest pain. SLEEP: Denies morning headaches, daytime somnolence or napping. Denies difficulty falling asleep, staying asleep, waking from sleep. Denies knowledge of snoring. GASTROINTESTINAL: Denies any type of dysphagia to either liquids or solids. Denies nausea, vomiting, pyrosis, early satiety, abdominal pain, diarrhea, constipation, or changes in stool consistency or caliber. Denies coffee-ground emesis, hematemesis, hematochezia, or melanotic stools. GENITOURINARY: Complain of right flank pain Denies frequency, urgency, nocturia, hematuria or incontinence (Storage/Irritative symptoms.) Low urinary stream, straining to void, urinary intermittency or hesitancy, splitting of the voiding stream, terminal dribbling. ENDOCRINOLOGIC: Denies polyuria, polydipsia, polyphagia or heat/cold intolerances. HEMATOLOGIC: Denies thrombophilia/previous clots, or coagulopathy/bleeding disorders. ONCOLOGIC: Denies personal history of malignancy. DERMATOLOGIC: Denies rashes or pruritus. PSYCHIATRIC: Denies any suicidal or homicidal ideation. Denies hallucinations. PAST MEDICAL HISTORY: [ Hyperlipidemia, hypertension and kidney stones ] PAST SURGICAL HISTORY: [ Appendectomy, uterus ablation, tubal ligation ] PAST SOCIAL HISTORY: [ Patient lives alone. Patient denies alcohol tobacco and recreational drug use ] FAMILY HISTORY: [Hypertension, and cancer ] Coded Allergies: No Known Allergies (Unverified Allergy, Unknown, 02/26/17) PHYSICAL EXAM GENERAL APPEARANCE: The patient is awake, alert, and oriented, in no acute cardiopulmonary distress. NEUROLOGICAL: Cranial nerves II-XII grossly intact. Motor is 5/5 in bilateral upper and lower extremities proximal to distal. No sensory deficits. HEENT: Face is symmetric. Pupils are equal and reactive. Extraocular movements are intact. NECK: Supple. No JVD. No thyromegaly. No submental, submandibular, pre- /postauricular, occipital or supraclavicular lymphadenopathy. CHEST: Normal chest expansion. No Telemetry. LUNGS: Absence of any rales, rhonchi or any wheezing. CARDIOVASCULAR: Regular. S1 and S2 normal. No appreciable rubs, murmurs or gallops. ABDOMEN: Soft, nontender, and nondistended. There is no rebound, voluntary guarding, or rigidity. : Deferred. No Grace. EXTREMITIES: Non-edematous and not cyanotic. No clubbing. Good capillary refill. SKIN: No skin breakdown. Vital Sign (Last 24 Hours) 11/30/24 00:01 Temp 99.0 Pulse 78 Resp 18 B/P (MAP) 148/72 Pulse Ox 98 O2 Delivery Room Air* O2 Flow Rate 0 FiO2 21 LABS: Laboratory: Test 11/29/24 20:45 Range/Units Urine Color LIGHT-YELLOW YELLOW Urine Appearance CLOUDY H CLEAR Urine pH 6.5 5.0-8.0 Urine Specific [place] 1.010 1.001-1.031 Urine Protein NEGATIVE NEGATIVE mg/dL Urine Glucose (UA) NEGATIVE NEGATIVE mg/dL Urine Ketones NEGATIVE NEGATIVE mg/dL Urine Occult Blood MODERATE H NEGATIVE Urine Nitrate NEGATIVE NEGATIVE Urine Bilirubin NEGATIVE NEGATIVE mg/dL Urine Urobilinogen 0.2 0.2-1.0 mg/dL Urine Leukocyte Esterase 500 H NEGATIVE Rhiannon/uL Urine RBC 11-25 H 0-1 /HPF Urine WBC 26-50 H 0-1 /HPF Urine Squamous Epithelial Cells RARE 0-2 /HPF Urine Bacteria RARE None Seen /HPF Urine Yeast FEW None Seen /HPF Current Medications Medications (Trade) Dose Ordered Sig/Nuria Route PRN Reason Start Time Stop Time Status Last Admin Dose Admin Acetaminophen (TYLenol 325MG TAB) 650 mg Q4H PRN PO MILD PAIN (1-3) 11/30/24 02:30 12/30/24 02:29 Acetaminophen (TYLenol 325MG TAB) 650 mg Q6H PRN PO TEMPERATURE GREATER THAN 101.5 11/30/24 02:30 12/30/24 02:29 Acetaminophen/ Hydrocodone Bitart (NORco 5/325MG) 1 tab Q4H PRN PO MODERATE PAIN (4-6) 11/30/24 02:30 12/05/24 02:29 Acetaminophen/ Hydrocodone Bitart (NORco 5/325MG) 2 tab Q4H PRN PO SEVERE PAIN (7-10) 11/30/24 02:30 12/05/24 02:29 Ceftriaxone Sodium 1 gm/ Sodium Chloride 50 ml @ 100 mls/hr BID IV 11/30/24 09:00 12/10/24 08:59 UNV Ceftriaxone Sodium (ROCEphine 1G INJ) 1 gm BID IVPB 11/30/24 09:00 12/10/24 08:59 Famotidine (Pepcid 20mg Vial) 20 mg BID IV 11/30/24 09:00 12/30/24 08:59 Hydralazine HCl (APRESOLine 20MG INJ) 10 mg Q6H PRN IV For:SBP above 160;DBP above 90 11/30/24 02:30 12/30/24 02:29 Ondansetron HCl (zoFRAN 4MG INJ) 4 mg Q6H PRN IV NAUSEA/VOMITING 11/30/24 02:30 12/30/24 02:29 DIAGNOSTICS / RADIOLOGY: [ ] ASSESSMENT: Acute complicated urinary tract infection POA Right staghorn renal calculus with hydronephrosis per CT POA Hypertension POA Morbid obesity POA PLAN: We will admit patient in medical surgical floor We will start on heart healthy diet We will start patient on Rocephin 1 g IV b.i.d. for empiric coverage We will start on Famotidine 20 mg IV bid for GI prophylaxis We will replace electrolytes as needed per protocol We will add prn medication for fever,pain,cough , nausea and vomiting We will reconcile home meds once medlist available We will seek Urology consultation We will request labs in am Further orders to follow depending on above results Case discussed with attending physician and came up with above treatment and plan of care. ADVANCED CARE PLANNING 1. Which of the following were discussed? Hospice Care - No Therapeutic options - Yes Advance Directives - No Other discussions - 2. Discussed with who? Patient 3. Voluntary nature of this service was explained to the patient? Yes 4. Amount of time spent - ___22____ 5. Reviewed by Physician? (if this service was performed by NPP) Yes ADDENDUM: ATTENDING PHYSICIAN ATTESTATION: I have reviewed the [facility]'s plan. I have independently seen, reviewed the chart and made my own assessment of the patient. See my addendum for updates to the [facility]'s medical plan MD ZULLY Dong [facility] Nov 30, 2024 03:14 АЛЕКСАНДР CONRAD MD Nov 30, 2024 13:48
--- NOTE | 2024-11-30 03:45 | NUR ---
PATIENT REPORT GIVEN TO MARTÍN DEL CASTILLO
[2024-11-30 03:55] VITALS: BP 157/83; PULSE 64; RESP 17; TEMP 97.4
--- NOTE | 2024-11-30 03:55 | NUR ---
admit note admit to room 406 via stretcher from er, patient awake, alert, ox3, no family at bedside, teach patient plan of care, pain management and expected outcome, patient verbalizes understanding via teach back
[2024-11-30 06:37] LABS: BASOPHILS # (AUTO) 0.04 K/uL (0.00-0.20); BASOPHILS % (AUTO) 0.8 % (0.0-5.0); EOSINOPHILS # (AUTO) 0.08 K/uL (0.00-0.70); EOSINOPHILS % (AUTO) 1.6 % (0.0-8.0); HEMATOCRIT 34.8 % (36-48); LYMPHOCYTES # (AUTO) 2.2 K/uL (1.0-4.8); MEAN CORPUSCULAR HEMOGLOBIN 30.1 pg (27.0-33.0); MEAN CORPUSCULAR HGB CONC 32.8 g/dL (32.0-36.0); MEAN CORPUSCULAR VOLUME 91.8 fL (79-99); MONOCYTES # (AUTO) 0.3 K/uL (0.1-1.0); MONOCYTES % (AUTO) 6.1 % (3.0-13.0); NEUTROPHILS # (AUTO) 2.4 K/uL (1.8-7.7); NEUTROPHILS % (AUTO) 47.5 % (40.0-77.0); PLATELET COUNT (AUTO) 372 K/uL (130-400); RED BLOOD CELL COUNT(AUTO) 3.79 MIL/uL (4.00-5.50); RED CELL DISTRIBUTION WIDTH 12.2 % (11.0-15.5); WHITE BLOOD COUNT (AUTO) 5.1 K/uL (4.8-10.8)
[2024-11-30 06:52] LABS: INR <= 0.93 (0.85-1.15); PROTHROMBIN TIME 9.6 SEC (9.6-11.6)
[2024-11-30 06:53] LABS: PARTIAL THROMBOPLASTIN TIME 30.1 SEC (26.3-35.5)
[2024-11-30 06:55] LABS: BILIRUBIN,TOTAL 0.2 mg/dL (0.2-1.0); CREATININE 0.7 mg/dL (0.5-1.0)
[2024-11-30 08:00] VITALS: O2SAT 99
[2024-11-30 08:20] VITALS: BP 131/79; PULSE 65; RESP 19; TEMP 98
[2024-11-30] MEDS ORDERED: cefTRIAXone 1G VIAL 1 GM in 0.9%NACL 50ML 50 ML IV SCH (09:00)
[2024-11-30] MEDS: cefTRIAXone 1G VIAL IVPB SCH (10:59)
[2024-11-30] MEDS: FAMOTIDINE 20MG VIAL IV SCH (10:59)
--- NOTE | 2024-11-30 11:24 | NUR ---
[facility] CM MET WITH PT AND DAUGHTER JOLYNN IN ROOM THIS MORNING, INUITIAL ASSESSMENT DONE. PATIENT IS INDEPENDENT PRIOR TO ADMISSION, SONS LIVES AT HOME WITH PATIENT. DENIES ANY EQUIPMENT/SERVICES. FEELS SAFE TO GO BACK HOME, STILL WORK AND DRIVE, DAUGHTER ABLE TO ASSIST WITH TRANSPORTATION AND NEEDS NECESSARY. VERIFIED PHYSICAL ADDRESS: [address] [place] [address]. PT STATE ADDRESS ON FACE SHEET IS HER PERMANENT MAILING ADDRESS FOR ALL MAILS, IT'S HER DAUGHTER'S HOUSE TANYA. MOP HOME ONCE STABLE. CM TO CONTINUE TO FOLLOW UP. Addendum: 11/30/24 at 1126 by HUMBERTO REDMOND LVN Amended: Links added.
[2024-11-30] MEDS: HYDROcodone/APAP 5/325 1 TAB TABLET PO PRN (12:04)
[2024-11-30 12:14] VITALS: BP 147/77; PULSE 74; RESP 19; TEMP 97.7
[2024-11-30 16:10] VITALS: BP 121/61; PULSE 72; RESP 19; TEMP 98.1
[2024-11-30 20:00] VITALS: BP 136/87; PULSE 72; RESP 17; TEMP 98.5; O2SAT 96
--- NOTE | 2024-11-30 21:00 | CONS ---
UROLOGY CONSULTATION NOTE Date of Service: Nov 30, 2024 Reason for Consultation: Right staghorn calculus greater than 3 cm Requesting Physician: Isak Garcia MD HISTORY OF PRESENT ILLNESS: 49 year old female presented to the ED for complaints of right sided flank pain for the past 4 days. Patient describes pain as a dull stabbing ache in the right mid back radiating to his the right shoulder aggravated by sudden movements. Patient states she has similar problems 3 weeks ago and went to see her PCP for which she was told she has a UTI and started on antibiotic. As per patient she completed the treatment however pain came back 4 days ago and pain intensity has been gradually increasing and persistent so she decided to come to the ED. She been taking Ibuprofen and alternating with Tylenol but to no relief. At the time of presentation in the emergency department the pain was about a 7- 8 on a scale of 1-10. She denied any systemic symptoms or local urinary symptoms. Urinalysis did show inflammatory markers, cultures pending. CT abdomen and pelvis without contrast result revealed there is a 3 cm right staghorn renal calculus. Mild right hydronephrosis is seen. She was admitted to the floor for supportive care with a urological consult. REVIEW OF SYSTEMS CONSTITUTIONAL: Denies fever, chills, or fatigue. HEAD/FACE: No signs of trauma. EENT: Denies eye pain, blurred vision, double vision, or light sensitivity. RESPIRATORY: Denies shortness of breath, cough, wheezing CARDIOVASCULAR: Denies chest pain, palpitation, syncope GASTROINTESTINAL/ABDOMINAL: Denies abdominal pain, constipation, diarrhea, nausea or vomiting GENITOURINARY: Denies dysuria or hematuria. MUSCULOSKELETAL: Denies joint pain, tenderness, or trauma. INTEGUMENTARY: Denies rash or itchiness NEUROLOGICAL/PSYCH: Denies anxiety, depression, heat or cold intolerance. PAST MEDICAL HISTORY: Hyperlipidemia Hypertension Nephrolithiasis PAST SURGICAL HISTORY: Appendectomy Tubal ligation Uterine ablation PAST SOCIAL HISTORY: Denies ethanol, smoking and recreational drugs FAMILY HISTORY: Family history is noncontributory to presenting complaint. She is a local resident. Coded Allergies: No Known Allergies (Unverified Allergy, Unknown, 02/26/17) PHYSICAL EXAM EYES: Anicteric. Pupils equal and reactive. HENT: No oral thrush seen, moist Oral mucosa NECK: Supple, no JVD or thyromegaly. LUNGS: Good air entry. No rales, no rhonchi. CARDIOVASCULAR: S1, S2 regular. No murmur heard. ABDOMEN: Soft, non tender, bowel sounds present, no organomegaly CENTRAL NERVOUS SYSTEM: Awake, alert, oriented x 3. No focal deficits. SKIN: No rashes, no swelling. LYMPHATICS: No peripheral lymphadenopathy MUSCULOSKELETAL: No joint swelling, erythema or tenderness. EXTREMITIES: No cyanosis or clubbing BACK: No deformity, no pressure ulcer. GENITOURINARY: Right flank discomfort with deep palpation Vital Sign (Last 24 Hours) 11/30/24 11/30/24 08:00 16:10 Temp 98.1 Pulse 72 Resp 19 B/P (MAP) 121/61 Pulse Ox 96 O2 Delivery Room Air O2 Flow Rate 0 FiO2 21 LABS: Laboratory: Test 11/30/24 06:08 11/29/24 20:45 Range/Units White Blood Count 5.1 4.8-10.8 K/uL Red Blood Count 3.79 L 4.00-5.50 MIL/uL Hemoglobin 11.4 L 12.0-16.0 g/dL Hematocrit 34.8 L 36-48 % Mean Corpuscular Volume 91.8 79-99 fL Mean Corpuscular Hemoglobin 30.1 27.0-33.0 pg Mean Corpuscular Hemoglobin Concent 32.8 32.0-36.0 g/dL Red Cell Distribution Width 12.2 11.0-15.5 % Platelet Count 372 130-400 K/uL Mean Platelet Volume 9.6 7.5-10.5 fL Immature Granulocyte % (Auto) 0.0 0-1 % Neutrophils (%) (Auto) 47.5 40.0-77.0 % Lymphocytes (%) (Auto) 44.0 21.0-51.0 % Monocytes (%) (Auto) 6.1 3.0-13.0 % Eosinophils (%) (Auto) 1.6 0.0-8.0 % Basophils (%) (Auto) 0.8 0.0-5.0 % Neutrophils # (Auto) 2.4 1.8-7.7 K/uL Lymphocytes # (Auto) 2.2 1.0-4.8 K/uL Monocytes # (Auto) 0.3 0.1-1.0 K/uL Eosinophils # (Auto) 0.08 0.00-0.70 K/uL Basophils # (Auto) 0.04 0.00-0.20 K/uL Absolute Immature Granulocyte (auto 0.00 0-1 K/uL Nucleated Red Blood Cells 0.0 0.0-0.19 % Prothrombin Time 9.6 9.6-11.6 SEC Prothromb Time International Ratio <= 0.93 0.85-1.15 Activated Partial Thromboplast Time 30.1 26.3-35.5 SEC Sodium Level 138 136-145 mmol/L Potassium Level 4.0 3.5-5.1 mmol/L Chloride Level 104 101-111 mmol/L Carbon Dioxide Level 28 21-32 mmol/L Blood Urea Nitrogen 13 7-18 mg/dL Creatinine 0.7 0.5-1.0 mg/dL Glomerular Filtration Rate Calc 105 >90 mL/min Random Glucose 96 70-105 mg/dL Total Calcium 8.8 8.5-10.1 mg/dL Magnesium Level 2.00 1.80-2.40 mg/dL Total Bilirubin 0.2 0.2-1.0 mg/dL Aspartate Amino Transf (AST/SGOT) 25 10-37 U/L Alanine Aminotransferase (ALT/SGPT) 27 12-78 U/L Alkaline Phosphatase 132 50-136 U/L Total Protein 7.0 6.0-8.3 g/dL Albumin 3.0 L 3.5-5.0 g/dL Procalcitonin < 0.05 L 0.05-0.5 ng/mL Urine Color LIGHT-YELLOW YELLOW Urine Appearance CLOUDY H CLEAR Urine pH 6.5 5.0-8.0 Urine Specific [place] 1.010 1.001-1.031 Urine Protein NEGATIVE NEGATIVE mg/dL Urine Glucose (UA) NEGATIVE NEGATIVE mg/dL Urine Ketones NEGATIVE NEGATIVE mg/dL Urine Occult Blood MODERATE H NEGATIVE Urine Nitrate NEGATIVE NEGATIVE Urine Bilirubin NEGATIVE NEGATIVE mg/dL Urine Urobilinogen 0.2 0.2-1.0 mg/dL Urine Leukocyte Esterase 500 H NEGATIVE Rhiannon/uL Urine RBC 11-25 H 0-1 /HPF Urine WBC 26-50 H 0-1 /HPF Urine Squamous Epithelial Cells RARE 0-2 /HPF Urine Bacteria RARE None Seen /HPF Urine Yeast FEW None Seen /HPF DIAGNOSTICS / RADIOLOGY: CT abdomen and pelvis without contrast (stone protocol) did confirm a right- sided staghorn calculus measuring greater than 3 cm ASSESSMENT: 49-year-old female presents with a dull right flank ache with an etiology of a right staghorn calculus PLAN: 1. Patient is going to need stone intervention. The recommended treatment of choice for stones of that size and configuration is percutaneous nephrolithotomy. As we discussed with patient we are not quite sure if the operating suite at this facility is able to offer that particular kind of intervention. We will investigate and gave patient feedback 2. Patient would need intravenous transitioned over to p.o. antimicrobial therapy to quell her flank pain symptoms. She will also need adequate pain medications. 3. If PCNL is not readily available in this facility, this patient will see us in the office outpatient so we can schedule her electively at a facility in [facility]. 4. We will continue to follow patient's course both in-house and in an ambulato ry setting. 60 minutes spent to complete a consult, more than half of time spent in counseling and coordination of care and addressing all questions and concerns post by patient, some time was spent discussing with members of her care team, the rest of the time was spent reviewing medical records past and present as well as laboratory and imaging data from this admission. ISIS PAGAN MD Nov 30, 2024 21:00
[2024-12-01] VITALS (8 sets, daily range): BP systolic 125–144; BP diastolic 64–85; PULSE 57–73; RESP 17–19; TEMP 98–98.4; O2SAT 98–100
--- NOTE | 2024-12-01 16:00 | NUR ---
CALRIFICATION OF PLANOF CARE PLEASE SEE NOTE REGARDING PROCEDURE THAT DR. PAGAN FEELS IS NECESARY FOR THIS PROCEDURE. SPOKE TO AGRICULTURAL REAL ESTATE AGENT M STATES THAT IT IS I NOT DONE HERE CONTACTED DR. PAGAN TO CLARIFY PLAN OF CARE HIS STATES THAT HIS RECOMMENDATION IS FOR PATIENT TO 'FOLLOW UP WITH DR. JARQUIN IN [place]; HE IS UROLOGIST THAT DOES A LOT OF PROCEDURES, IT IS POSSIBLE HE DOES THAT ONE AT [facility]" PIF PATIENT UNABLE TO GET PROCEDURE WITHIN THE [facility] SYSTEM, INSURANCE WOULD PAY AT ANOTHER FACILITY BUT IT HAS TO BE DOCUMENTED UNAVAILABLE IN OUR SYSTEM. WILL ENDORSE TO WEEKEND CM
--- NOTE | 2024-12-01 20:09 | PN ---
[facility] PROGRESS NOTE Date of Service: Dec 01, 2024 Time of Service: 20:06 SUBJECTIVE: 12/01 patient seen at bedside, no acute events overnight. She continues to have pain and pressure in her flank. She was evaluated by Urology who is recommending a procedure however he is not sure if this facility has the tools he needs, today we will clarify and follow up with the patient. If the proper tools are not available for the procedure, patient will need to be discharged and follow up at [facility] for proper procedure. Vitals unremarkable, lab holiday today. REVIEW OF SYSTEMS CONSTITUTIONAL: Denies fevers, chills, or night sweats. No unintentional weight loss reported. NEUROLOGICAL: Denies headache, amaurosis fugax, motor weakness, sensory deficit, vertigo/spinning sensation, gait abnormalities, or tremors. ENT: No hearing loss, otalgia, otorrhea, rhinitis, rhinorrhea, hoarseness, or sore throat. CARDIOVASCULAR: Denies any exertional angina, dyspnea on exertion, orthopnea, paroxysmal nocturnal dyspnea, palpitations, life-threatening arrhythmias, claudication. PULMONARY: Denies any shortness of breath, cough, phlegm/sputum, hemoptysis, pleuritic chest pain. SLEEP: Denies morning headaches, daytime somnolence or napping. Denies difficulty falling asleep, staying asleep, waking from sleep. Denies knowledge of snoring. GASTROINTESTINAL: Denies any type of dysphagia to either liquids or solids. Denies nausea, vomiting, pyrosis, early satiety, abdominal pain, diarrhea, constipation, or changes in stool consistency or caliber. Denies coffee-ground emesis, hematemesis, hematochezia, or melanotic stools. GENITOURINARY: Complain of right flank pain Denies frequency, urgency, nocturia, hematuria or incontinence (Storage/Irritative symptoms.) Low urinary stream, straining to void, urinary intermittency or hesitancy, splitting of the voiding stream, terminal dribbling. ENDOCRINOLOGIC: Denies polyuria, polydipsia, polyphagia or heat/cold intolerances. HEMATOLOGIC: Denies thrombophilia/previous clots, or coagulopathy/bleeding disorders. ONCOLOGIC: Denies personal history of malignancy. DERMATOLOGIC: Denies rashes or pruritus. PSYCHIATRIC: Denies any suicidal or homicidal ideation. Denies hallucinations. PHYSICAL EXAM GENERAL APPEARANCE: The patient is awake, alert, and oriented, in no acute cardiopulmonary distress. NEUROLOGICAL: Cranial nerves II-XII grossly intact. Motor is 5/5 in bilateral upper and lower extremities proximal to distal. No sensory deficits. HEENT: Face is symmetric. Pupils are equal and reactive. Extraocular movements are intact. NECK: Supple. No JVD. No thyromegaly. No submental, submandibular, pre- /postauricular, occipital or supraclavicular lymphadenopathy. CHEST: Normal chest expansion. No Telemetry. LUNGS: Absence of any rales, rhonchi or any wheezing. CARDIOVASCULAR: Regular. S1 and S2 normal. No appreciable rubs, murmurs or gallops. ABDOMEN: Soft, nontender, and nondistended. There is no rebound, voluntary guarding, or rigidity. : Deferred. No Grace. EXTREMITIES: Non-edematous and not cyanotic. No clubbing. Good capillary refill. SKIN: No skin breakdown. Vital Signs (last 8hr) Date Time Temp Pulse Resp B/P (MAP) Pulse Ox O2 Delivery O2 Flow Rate FiO2 12/01/24 16:05 98.1 71 18 132/65 99 Room Air 12/01/24 13:18 100 Room Air* 0 21 LABS: Laboratory: Test 11/30/24 06:08 11/29/24 20:45 Range/Units White Blood Count 5.1 4.8-10.8 K/uL Red Blood Count 3.79 L 4.00-5.50 MIL/uL Hemoglobin 11.4 L 12.0-16.0 g/dL Hematocrit 34.8 L 36-48 % Mean Corpuscular Volume 91.8 79-99 fL Mean Corpuscular Hemoglobin 30.1 27.0-33.0 pg Mean Corpuscular Hemoglobin Concent 32.8 32.0-36.0 g/dL Red Cell Distribution Width 12.2 11.0-15.5 % Platelet Count 372 130-400 K/uL Mean Platelet Volume 9.6 7.5-10.5 fL Immature Granulocyte % (Auto) 0.0 0-1 % Neutrophils (%) (Auto) 47.5 40.0-77.0 % Lymphocytes (%) (Auto) 44.0 21.0-51.0 % Monocytes (%) (Auto) 6.1 3.0-13.0 % Eosinophils (%) (Auto) 1.6 0.0-8.0 % Basophils (%) (Auto) 0.8 0.0-5.0 % Neutrophils # (Auto) 2.4 1.8-7.7 K/uL Lymphocytes # (Auto) 2.2 1.0-4.8 K/uL Monocytes # (Auto) 0.3 0.1-1.0 K/uL Eosinophils # (Auto) 0.08 0.00-0.70 K/uL Basophils # (Auto) 0.04 0.00-0.20 K/uL Absolute Immature Granulocyte (auto 0.00 0-1 K/uL Nucleated Red Blood Cells 0.0 0.0-0.19 % Prothrombin Time 9.6 9.6-11.6 SEC Prothromb Time International Ratio <= 0.93 0.85-1.15 Activated Partial Thromboplast Time 30.1 26.3-35.5 SEC Sodium Level 138 136-145 mmol/L Potassium Level 4.0 3.5-5.1 mmol/L Chloride Level 104 101-111 mmol/L Carbon Dioxide Level 28 21-32 mmol/L Blood Urea Nitrogen 13 7-18 mg/dL Creatinine 0.7 0.5-1.0 mg/dL Glomerular Filtration Rate Calc 105 >90 mL/min Random Glucose 96 70-105 mg/dL Total Calcium 8.8 8.5-10.1 mg/dL Magnesium Level 2.00 1.80-2.40 mg/dL Total Bilirubin 0.2 0.2-1.0 mg/dL Aspartate Amino Transf (AST/SGOT) 25 10-37 U/L Alanine Aminotransferase (ALT/SGPT) 27 12-78 U/L Alkaline Phosphatase 132 50-136 U/L Total Protein 7.0 6.0-8.3 g/dL Albumin 3.0 L 3.5-5.0 g/dL Procalcitonin < 0.05 L 0.05-0.5 ng/mL Urine Color LIGHT-YELLOW YELLOW Urine Appearance CLOUDY H CLEAR Urine pH 6.5 5.0-8.0 Urine Specific [place] 1.010 1.001-1.031 Urine Protein NEGATIVE NEGATIVE mg/dL Urine Glucose (UA) NEGATIVE NEGATIVE mg/dL Urine Ketones NEGATIVE NEGATIVE mg/dL Urine Occult Blood MODERATE H NEGATIVE Urine Nitrate NEGATIVE NEGATIVE Urine Bilirubin NEGATIVE NEGATIVE mg/dL Urine Urobilinogen 0.2 0.2-1.0 mg/dL Urine Leukocyte Esterase 500 H NEGATIVE Rhiannon/uL Urine RBC 11-25 H 0-1 /HPF Urine WBC 26-50 H 0-1 /HPF Urine Squamous Epithelial Cells RARE 0-2 /HPF Urine Bacteria RARE None Seen /HPF Urine Yeast FEW None Seen /HPF Current Medications Medications (Trade) Dose Ordered Sig/Nuria Route PRN Reason Start Time Stop Time Status Last Admin Dose Admin Acetaminophen (TYLenol 325MG TAB) 650 mg Q4H PRN PO MILD PAIN (1-3) 11/30/24 02:30 12/30/24 02:29 Acetaminophen (TYLenol 325MG TAB) 650 mg Q6H PRN PO TEMPERATURE GREATER THAN 101.5 11/30/24 02:30 12/30/24 02:29 Acetaminophen/ Hydrocodone Bitart (NORco 5/325MG) 1 tab Q4H PRN PO MODERATE PAIN (4-6) 11/30/24 02:30 12/05/24 02:29 12/01/24 05:59 1 TAB Acetaminophen/ Hydrocodone Bitart (NORco 5/325MG) 2 tab Q4H PRN PO SEVERE PAIN (7-10) 11/30/24 02:30 12/05/24 02:29 Ceftriaxone Sodium 1 gm/ Sodium Chloride 50 ml @ 100 mls/hr BID IV 11/30/24 09:00 11/30/24 02:51 DC Ceftriaxone Sodium (ROCEphine 1G INJ) 1 gm BID IVPB 11/30/24 09:00 12/10/24 08:59 12/01/24 08:40 1 GM Famotidine (Pepcid 20mg Vial) 20 mg BID IV 11/30/24 09:00 12/30/24 08:59 12/01/24 08:40 20 MG Hydralazine HCl (APRESOLine 20MG INJ) 10 mg Q6H PRN IV For:SBP above 160;DBP above 90 11/30/24 02:30 12/30/24 02:29 Hydralazine HCl (APRESOLine 20MG INJ) 10 mg Q6H PRN IV ADMINISTER FOR SBP > 160 11/30/24 03:30 11/30/24 03:17 DC Ondansetron HCl (zoFRAN 4MG INJ) 4 mg Q6H PRN IV NAUSEA/VOMITING 11/30/24 02:30 12/30/24 02:29 DIAGNOSTICS / RADIOLOGY: [ ] ASSESSMENT: Acute complicated urinary tract infection POA Right staghorn renal calculus with hydronephrosis per CT POA Hypertension POA Morbid obesity POA PLAN: Continue medical surgical floor Continue on heart healthy diet Continue patient on Rocephin 1 g IV b.i.d. for empiric coverage Continue on Famotidine 20 mg IV bid for GI prophylaxis Urology consulted, appreciate recommendations Disposition: Pending improvement in clinical status, urology recommendations АЛЕКСАНДР CONRAD MD Dec 01, 2024 20:09
[2024-12-01] MEDS: acetaMINOPHEN 325 MG TAB PO PRN (20:24)
--- NOTE | 2024-12-01 22:30 | NUR ---
RECEIVED UPDATE FROM CM RECEIVED UPDATE FROM CM. DR. PAGAN SPOKE TO UROLOGIST DR. PAULA ZHANG IN [facility]. DR. ZHANG IS ABLE TO DO PERCUTANEUS PERCUTANEOUS NEPHROLITHOMY AT THE FACILITY. NEED TO FOLLOW UP WITH DR. PAGAN IN THE AM TO UPDATE PATIENT'S PLAN OF CARE.
--- NOTE | 2024-12-01 23:23 | PN ---
UROLOGY PROGRESS NOTE Date of Service: Dec 01, 2024 Time of Service: 23:19 SUBJECTIVE She reports feeling much better. The pain is unrelenting. I had a conversation with my colleague who practices at [facility] and he confirmed the me that PCNL, the procedure required by this patient is offered at that facility. REVIEW OF SYSTEMS CONSTITUTIONAL: Denies fever, chills, or fatigue. HEAD/FACE: No signs of trauma. EENT: Denies eye pain, blurred vision, double vision, or light sensitivity. RESPIRATORY: Denies shortness of breath, cough, wheezing CARDIOVASCULAR: Denies chest pain, palpitation, syncope GASTROINTESTINAL/ABDOMINAL: Denies abdominal pain, constipation, diarrhea, nausea or vomiting GENITOURINARY: Denies dysuria or hematuria. MUSCULOSKELETAL: Denies joint pain, tenderness, or trauma. INTEGUMENTARY: Denies rash or itchiness NEUROLOGICAL/PSYCH: Denies anxiety, depression, heat or cold intolerance. PHYSICAL EXAM EYES: Anicteric. Pupils equal and reactive. HENT: No oral thrush seen, moist Oral mucosa NECK: Supple, no JVD or thyromegaly. LUNGS: Good air entry. No rales, no rhonchi. CARDIOVASCULAR: S1, S2 regular. No murmur heard. ABDOMEN: Soft, non tender, bowel sounds present, no organomegaly CENTRAL NERVOUS SYSTEM: Awake, alert, oriented x 3. No focal deficits. SKIN: No rashes, no swelling. LYMPHATICS: No peripheral lymphadenopathy MUSCULOSKELETAL: No joint swelling, erythema or tenderness. EXTREMITIES: No cyanosis or clubbing BACK: No deformity, no pressure ulcer. GENITOURINARY: Right flank discomfort with deep palpation Vital Signs (last 8hr) Date Time Temp Pulse Resp B/P (MAP) Pulse Ox O2 Delivery O2 Flow Rate FiO2 12/01/24 20:01 98.2 73 17 125/64 98 Room Air 12/01/24 16:05 98.1 71 18 132/65 99 Room Air LABS: Laboratory: Test 11/30/24 06:08 Range/Units White Blood Count 5.1 4.8-10.8 K/uL Red Blood Count 3.79 L 4.00-5.50 MIL/uL Hemoglobin 11.4 L 12.0-16.0 g/dL Hematocrit 34.8 L 36-48 % Mean Corpuscular Volume 91.8 79-99 fL Mean Corpuscular Hemoglobin 30.1 27.0-33.0 pg Mean Corpuscular Hemoglobin Concent 32.8 32.0-36.0 g/dL Red Cell Distribution Width 12.2 11.0-15.5 % Platelet Count 372 130-400 K/uL Mean Platelet Volume 9.6 7.5-10.5 fL Immature Granulocyte % (Auto) 0.0 0-1 % Neutrophils (%) (Auto) 47.5 40.0-77.0 % Lymphocytes (%) (Auto) 44.0 21.0-51.0 % Monocytes (%) (Auto) 6.1 3.0-13.0 % Eosinophils (%) (Auto) 1.6 0.0-8.0 % Basophils (%) (Auto) 0.8 0.0-5.0 % Neutrophils # (Auto) 2.4 1.8-7.7 K/uL Lymphocytes # (Auto) 2.2 1.0-4.8 K/uL Monocytes # (Auto) 0.3 0.1-1.0 K/uL Eosinophils # (Auto) 0.08 0.00-0.70 K/uL Basophils # (Auto) 0.04 0.00-0.20 K/uL Absolute Immature Granulocyte (auto 0.00 0-1 K/uL Nucleated Red Blood Cells 0.0 0.0-0.19 % Prothrombin Time 9.6 9.6-11.6 SEC Prothromb Time International Ratio <= 0.93 0.85-1.15 Activated Partial Thromboplast Time 30.1 26.3-35.5 SEC Sodium Level 138 136-145 mmol/L Potassium Level 4.0 3.5-5.1 mmol/L Chloride Level 104 101-111 mmol/L Carbon Dioxide Level 28 21-32 mmol/L Blood Urea Nitrogen 13 7-18 mg/dL Creatinine 0.7 0.5-1.0 mg/dL Glomerular Filtration Rate Calc 105 >90 mL/min Random Glucose 96 70-105 mg/dL Total Calcium 8.8 8.5-10.1 mg/dL Magnesium Level 2.00 1.80-2.40 mg/dL Total Bilirubin 0.2 0.2-1.0 mg/dL Aspartate Amino Transf (AST/SGOT) 25 10-37 U/L Alanine Aminotransferase (ALT/SGPT) 27 12-78 U/L Alkaline Phosphatase 132 50-136 U/L Total Protein 7.0 6.0-8.3 g/dL Albumin 3.0 L 3.5-5.0 g/dL Procalcitonin < 0.05 L 0.05-0.5 ng/mL DIAGNOSTICS / RADIOLOGY: CT abdomen and pelvis without contrast (stone protocol) did confirm a right- sided staghorn calculus measuring greater than 3 cm ASSESSMENT: 49-year-old female presents with a dull right flank ache with an etiology of a right staghorn calculus PLAN: 1. Given patient's insurance restrictions, she we will really like to have this procedure performed at a prime [facility] Facility. PCNL is not offered at [facility], it is not offered at [facility]. The only prior facility in the region the office PCNL is [facility]. I confirmed that with my colleague urologist who practices over there. In that case if patient wants to perform this procedure at a prime facility she will have to seek care at [facility]. Better still she can make an appointment to see Dr. Maverick Waldron in his office next week for scheduling of PCNL at [facility]. 2. If however patient chooses not to have the procedure done at a prime facility, we are more than happy to take care of her at [facility] in [facility]. 5 minutes spent completing this visit, more than half of the time was spent at bedside in counseling and coordination of care and addressing all questions posed by patient. Some time was spent discussing with members of her care team. The rest of the time was spent reviewing medical records. ISIS PAGAN MD Dec 01, 2024 23:23
[2024-12-02] VITALS: BP 116/70; PULSE 67; RESP 17; TEMP 98.2
[2024-12-02 04:07] VITALS: BP 157/91; PULSE 91; RESP 17; TEMP 97.8
[2024-12-02 04:28] LABS: BASOPHILS # (AUTO) 0.04 K/uL (0.00-0.20); BASOPHILS % (AUTO) 0.7 % (0.0-5.0); EOSINOPHILS # (AUTO) 0.09 K/uL (0.00-0.70); EOSINOPHILS % (AUTO) 1.5 % (0.0-8.0); HEMATOCRIT 33.9 % (36-48); IMMATURE GRANULOCYTE ABSOLUTE 0.01 K/uL (0-1); LYMPHOCYTES # (AUTO) 2.3 K/uL (1.0-4.8); LYMPHOCYTES % (AUTO) 36.8 % (21.0-51.0); MEAN CORPUSCULAR HEMOGLOBIN 29.6 pg (27.0-33.0); MEAN CORPUSCULAR HGB CONC 32.7 g/dL (32.0-36.0); MEAN CORPUSCULAR VOLUME 90.4 fL (79-99); MONOCYTES # (AUTO) 0.5 K/uL (0.1-1.0); MONOCYTES % (AUTO) 7.9 % (3.0-13.0); NEUTROPHILS # (AUTO) 3.2 K/uL (1.8-7.7); NEUTROPHILS % (AUTO) 52.9 % (40.0-77.0); PLATELET COUNT (AUTO) 396 K/uL (130-400); RED BLOOD CELL COUNT(AUTO) 3.75 MIL/uL (4.00-5.50); RED CELL DISTRIBUTION WIDTH 12.1 % (11.0-15.5); WHITE BLOOD COUNT (AUTO) 6.1 K/uL (4.8-10.8)
[2024-12-02 04:51] LABS: CREATININE 0.8 mg/dL (0.5-1.0); MAGNESIUM 1.9 mg/dL (1.80-2.40); PHOSPHORUS 4.2 mg/dL (2.5-4.9); POTASSIUM 3.9 mmol/L (3.5-5.1)
[2024-12-02 08:00] VITALS: BP 144/76; PULSE 65; RESP 18; TEMP 98.1
[2024-12-02 09:00] VITALS: O2SAT 97
[2024-12-02 11:50] VITALS: BP 150/90; PULSE 66; RESP 17; TEMP 98.5
--- NOTE | 2024-12-02 14:00 | NUR ---
CANCEL TRANSFER TRANSFER TO [facility] CANCELED. Pt to discharge home and set up appointment [id number].
[2024-12-02] MEDS ORDERED: LEVO750T90 PO (14:20)
--- NOTE | 2024-12-02 14:45 | NUR ---
DISCHARGE PT sitting in bed w/ eyes open 0 s/s of distress noted. AxOx4 resp = and unlabored bilat. Discharge instructions given to PT and family verbally and written. PT verbally acknowledged understanding. I.V. removed intact w/o complications. PT escorted to POV VIA wheelchair by [employer] DEVELOPER.
--- NOTE | 2024-12-02 19:51 | DS ---
Discharge Summary Hospital Course Summary: 49 year old female with past medical history of hyperlipidemia,hypertension and kidney stones who presents to the Ed for complaints of right sided flank pain for the past 4 days .Patient states she has similar problems 3 weeks ago and went to see her PCP for which she was told she has a UTI and started on antibiotic.As per patient she completed the treatment however pain came back 4 days ago and pain intensity has been gradually increasing and persistent so she decided to come to the ED. Patient reports she been taking Ibuprofen and alternating with Tylenol but to no relief. Urinalysis consistent with urinary tract infection. CT abdomen and pelvis without contrast result revealed there is a 3 cm right staghorn renal calculus. Mild right hydronephrosis is seen. She was admitted and urology was consulted. Urology recommended PCNL however it cannot be performed at this institution, Dr. Mchugh recommended patient follow up with Urologist, Dr. Polk, from [facility], where her insurance is accepted as she requested. Initially a transfer was considered however Dr. Polk stated there will be prep time for the procedure and her UTI should be adequately treated before the procedure. Discussed with the patient and she was in agreement to be discharged home to follow up at his office to schedule the procedure as soon as possible. By hospital day 2 she was discharged home on antibiotics. . Skill Labor(s): Urology Procedure(s): CT ABD/PEL WO CON RENAL/APPY HISTORY: Right flank pain COMPARISON: None TECHNIQUE: Multiple sequential axial images of the abdomen and pelvis were obtained from the dome of the diaphragm through symphysis pubis. Patient was not given contrast through intravenous route. Oral contrast was not given. FINDINGS: No pleural effusion is seen bilaterally. There is no evidence of parenchymal disease or pulmonary nodule of the visualized lower lungs. Degenerative changes of the thoracolumbar spine are present. The heart is not enlarged. The liver, spleen, adrenal glands and pancreas are unremarkable. No hydronephrosis is seen on the left. There is a 3 cm right staghorn renal calculus. Mild right hydronephrosis is seen. Fecal material is seen in the colon. There are normal size retroperitoneal and mesenteric lymph nodes. No ascites is seen. The appendix is not seen. No definite CT evidence of acute sinusitis is seen. There is right ovarian cyst measuring 4.6 cm. Pelvic sidewalls are symmetric bilaterally. Bladder is well distended without wall thickening. IMPRESSION: 1. There is a 3 cm right staghorn renal calculus. Mild right hydronephrosis is seen. Assessment/Plan: Acute complicated urinary tract infection POA Right staghorn renal calculus with hydronephrosis per CT POA Hypertension POA Morbid obesity POA Discharge Instructions: Follow up with PCP in 3-7 days Follow up with urologist, Dr. Polk, to schedule procedure early next week Home Medications: Active Scripts Levofloxacin (Levofloxacin) 750 Mg Tablet, 1 TAB PO DAILY for 10 Days, #10 TAB 0 Refills Prov:АЛЕКСАНДР CONRAD MD 12/02/24 Reported Medications Losartan Potassium (Losartan Potassium) 50 Mg Tablet, 50 MG PO HS, TAB 05/30/24 Atorvastatin Calcium (Atorvastatin Calcium) 20 Mg Tablet, 20 MG PO HS, TAB 04/07/19 Discontinued Reported Medications Ibuprofen (Ibuprofen 800 mg Tab) 800 Mg Tab, 800 MG PO Q6H PRN for PAIN, TAB 05/30/24 [Vitamin D3] No Conflict Check, 1000 MG PO AM 05/31/24 Discontinued Scripts Ketorolac Tromethamine (Ketorolac Tromethamine) 10 Mg Tablet, 10 MG PO BID for 5 Days, #10 TAB Prov:LUIS ALDANA 05/31/24 New Medications: Levofloxacin (Levofloxacin) 750 Mg Tablet 1 TAB PO DAILY for 10 Days, #10 TAB 0 Refills Continued Medications: Atorvastatin Calcium (Atorvastatin Calcium) 20 Mg Tablet 20 MG PO HS, TAB Losartan Potassium (Losartan Potassium) 50 Mg Tablet 50 MG PO HS, TAB Discontinued Medications: Ibuprofen (Ibuprofen 800 mg Tab) 800 Mg Tab 800 MG PO Q6H PRN for PAIN, TAB Time spent arranging discharge: 31-60 minutes АЛЕКСАНДР CONRAD MD Dec 02, 2024 19:51
--- NOTE | 2024-12-06 14:45 | NUR ---
Transitional Phone Call Carmen Rivas, Daughter [phone], returned call; states patient "is doing good and she is still taking antibiotics." States patient has all her prescriptions; denies questions or concerns. [facility] patient has appointment with PCP - Dr. Nhan Metz today 12/06/2024; will discuss referral for urologist - Dr. Maverick Waldron and set up appointment. Provided medical records information. No further questions or concerns at this time.
== END 2024-12-02 15:25 | disposition home or self-care (01) | DRG 690 ==
LOC: EDH 20:37 → EDHIP 11-30 02:20 → 4BH 11-30 03:29
PROVIDERS: ADMIT Internal Medicine Sleep Medicine; ATTEND Internal Medicine Sleep Medicine
DX: N13.6 Pyonephrosis (principal); Z68.41 Body mass index [BMI] 40.0-44.9, adult; E66.01 Morbid (severe) obesity due to excess calories; I10 Essential (primary) hypertension; E78.00 Pure hypercholesterolemia, unspecified; Z82.49 Family history of ischemic heart disease and other diseases of the circulatory system; Z87.442 Personal history of urinary calculi; Z90.49 Acquired absence of other specified parts of digestive tract; Z98.51 Tubal ligation status; Z80.9 Family history of malignant neoplasm, unspecified
CPT/HCPCS: 36415; 74176; 80048; 80053; 81001; 83735; 84100; 84145; 85025; 85610; 85730; 87086; 87186; 92950; 96374; 96375; 99285; G0378; J0696; J1885; J2270; J3490

== ENCOUNTER → 2025-04-03 | Outpatient (CLI) | payer OTHER ==
[~2025-04-03] MED LIST changes: -IBUP-2077 PO; -KETO10TA2 PO; -VITAMIN D3 PO
[2025-04-03 08:36] LABS: IMMATURE GRANULOCYTE ABSOLUTE 0.01 K/uL (0-1); NUCLEATED RED BLOOD CELLS 0.0 % (0.0-0.19); PLATELET COUNT (AUTO) 342 K/uL (130-400); RED BLOOD CELL COUNT(AUTO) 3.87 MIL/uL (4.00-5.50); RED CELL DISTRIBUTION WIDTH 12.9 % (11.0-15.5); WHITE BLOOD COUNT (AUTO) 5.5 K/uL (4.8-10.8)
[2025-04-03 08:39] LABS: APPEARANCE,URINE CLOUDY (CLEAR); GLUCOSE, URINE (UA) NEGATIVE (NEGATIVE); LEUKOCYTE ESTERASE ,URINE 500 Leu/uL (NEGATIVE); NITRATE,URINE NEGATIVE (NEGATIVE); OCCULT BLOOD,URINE LARGE (NEGATIVE)
[2025-04-03 08:58] LABS: ADD UA MICROSCOPIC YES
[2025-04-03 09:00] LABS: SQUAMOUS EPITHELIAL CELL,UR FEW /HPF (0-2); YEAST,URINE BUDDING RARE /HPF (None Seen)
[2025-04-03 09:06] LABS: % IRON SATURATION 13.4 % (22-44); IRON, SERUM 41.0 mcg/dL (50-170)
[2025-04-03 09:16] LABS: ASPARTATE AMINOTRANSFERASE 25.0 U/L (10-37); CREATININE 0.7 mg/dL (0.5-1.0); GLOMERULAR FILTR. RATE CALC 105.0 mL/min (>90); GLUCOSE,RANDOM 103.0 mg/dL (70-105); LDL DIRECT 146.0 mg/dL (0-99); SODIUM SERUM 139.0 mmol/L (136-145); TOTAL PROTEIN, SERUM 8.5 g/dL (6.0-8.3); UREA NITROGEN, BLOOD 11.0 mg/dL (7-18)
[2025-04-03 10:02] LABS: ERYTHROCYTE SEDIMENTATION RATE 51 MM/HR (0-30)
[2025-04-04 06:12] LABS: INSULIN, RANDOM OR FASTING 18.6 uIU/mL (2.6-24.9)
== END | disposition home or self-care (01) ==
LOC: LAB 07:23
PROVIDERS: ATTEND Nurse Practitioner Family
DX: I10 Essential (primary) hypertension (principal); N95.1 Menopausal and female climacteric states; N20.0 Calculus of kidney; E55.9 Vitamin D deficiency, unspecified; E78.00 Pure hypercholesterolemia, unspecified; R53.82 Chronic fatigue, unspecified; E03.9 Hypothyroidism, unspecified; Z79.899 Other long term (current) drug therapy
CPT/HCPCS: 36415; 80053; 80061; 81001; 82306; 82607; 82627; 82670; 82728; 82746; 83001; 83036; 83525; 83540; 83550; 84144; 84270; 84402; 84403; 84439; 84443; 84481; 85025; 85045; 85651; 86376; 87086; 87186

== ENCOUNTER 2025-04-13 09:18 | Emergency (ER) | payer OTHER ==
[~2025-04-13] VITALS: Ht 157.5 cm; Wt 98.0 kg
[2025-04-13 10:01] LABS: IMMATURE GRANULOCYTE ABSOLUTE 0.03 K/uL (0-1); NUCLEATED RED BLOOD CELLS 0.0 % (0.0-0.19); PLATELET COUNT (AUTO) 447 K/uL (130-400); RED BLOOD CELL COUNT(AUTO) 4.22 MIL/uL (4.00-5.50); RED CELL DISTRIBUTION WIDTH 12.6 % (11.0-15.5); WHITE BLOOD COUNT (AUTO) 8.1 K/uL (4.8-10.8)
[2025-04-13 10:11] LABS: CREATININE 1.0 mg/dL (0.5-1.0); GLOMERULAR FILTR. RATE CALC 68.0 mL/min (>90); GLUCOSE,RANDOM 119.0 mg/dL (70-105); SODIUM SERUM 133.0 mmol/L (136-145); UREA NITROGEN, BLOOD 13.0 mg/dL (7-18)
[2025-04-13 10:16] LABS: ASPARTATE AMINOTRANSFERASE 34.0 U/L (10-37); TOTAL PROTEIN, SERUM 8.7 g/dL (6.0-8.3)
--- NOTE | 2025-04-13 10:43 | ERN ---
General Chief Complaint: Blood in Urine: Stated Complaint: BLOOD IN URINE Time Seen by MD: 09:22 History of Present Illness Initial Comments This is a 49-year-old female presenting to the emergency department with acute onset of generalized weakness, vomiting, diarrhea, and gross hematuria. She reports the onset of vomiting this morning, accompanied by chills but denies fever. Additionally, she describes a two-day history of cough and nasal congestion. The patient is currently undergoing evaluation for nephrolithiasis and has a nephrolithotomy tube in situ for ongoing management and stone analysis. Allergies: Coded Allergies: No Known Allergies (Unverified Allergy, Unknown, 02/26/17) Home Meds Reported Medications Losartan Potassium (Losartan Potassium) 50 Mg Tablet, 50 MG PO HS, TAB 05/30/24 Atorvastatin Calcium (Atorvastatin Calcium) 20 Mg Tablet, 20 MG PO HS, TAB 04/07/19 Past Medical History Past Medical History: High Cholesterol, Hypertension, Kidney Stone Medical History Other: OVARIAN CYST Past Surgical History: Appendectomy, Other Surgical History Other: UTERUS ABLATION; TUBAL LIGATION Family History Family History: Negative Social History Social History: Negative Female( History) History: Not Applicable Constitutional: (+) chills, (+) weakness; (-) diaphoresis, (-) fever, (-) malaise, (-) other documentation EENTM: (-) eye pain, (-) blurred vision, (-) tearing, (-) double vision, (-) ear pain, (-) ear discharge, (-) nose pain, (-) nose congestion, (-) throat pain, (-) Throat swelling, (-) mouth pain, (-) tooth pain, (-) mouth swelling, (-) other documentation Respiratory: (+) cough; (-) orthopnea, (-) short of breath, (-) stridor, (-) wheezing, (-) other documentation Cardiovascular: (-) chest pain, (-) edema, (-) palpitations, (-) syncope, (-) dyspnea on exertion, (-) other documentation Gastrointestinal/Abdominal: (+) nausea, (+) vomiting, (+) diarrhea Genitourinary: (+) hematuria; (-) vaginal discharge, (-) vaginal bleeding, (-) dysuria, (-) frequency, (-) pain, (-) other documentation Musculoskeletal: (-) Neck pain, (-) back pain, (-) Flank Pain, (-) joint pain, (-) joint swelling, (-) muscle pain, (-) muscle stiffness, (-) gout, (-) other documentation Skin: (-) laceration, (-) contusion, (-) abrasion, (-) abscess, (-) rash, (-) change in color, (-) change in hair, (-) change in nails, (-) diaphoresis, (-) dryness, (-) other documentation Neuro: (-) altered mental status, (-) headache, (-) syncope, (-) paralysis, (-) numbness, (-) seizure, (-) pre-existing deficit, (-) tremors, (-) weakness, (-) dizziness, (-) slurred speech, (-) vertigo, (-) other documentation Physical Exam General Appearance: (+) moderate distress Orientation: (+) alert, (+) oriented x 3 Head/Face Trauma: No Ear, Nose, Throat: (+) hearing grossly normal Neck: (+) normal inspection, (+) supple Respiratory: (+) chest non-tender, (+) lungs clear Heart: (+) regular Vascular: (+) no edema Gastrointestinal: (+) soft Back Comment Tenderness on her right flank around the nephrolithotomy tube, but no signs of infection Extremities: (+) normal range of motion, (+) non-tender Results Laboratory and Microbiology Lab and Micro Result Laboratory Tests Test 04/13/25 09:54 04/13/25 12:33 04/13/25 14:50 White Blood Count 8.1 K/uL (4.8-10.8) Red Blood Count 4.22 MIL/uL (4.00-5.50) Hemoglobin 12.3 g/dL (12.0-16.0) Hematocrit 38.0 % (36-48) Mean Corpuscular Volume 90.0 fL (79-99) Mean Corpuscular Hemoglobin 29.1 pg (27.0-33.0) Mean Corpuscular Hemoglobin Concent 32.4 g/dL (32.0-36.0) Red Cell Distribution Width 12.6 % (11.0-15.5) Platelet Count 447 K/uL (130-400) H Mean Platelet Volume 9.3 fL (7.5-10.5) Immature Granulocyte % (Auto) 0.4 % (0-1) Neutrophils (%) (Auto) 82.5 % (40.0-77.0) H Lymphocytes (%) (Auto) 11.3 % (21.0-51.0) L Monocytes (%) (Auto) 4.7 % (3.0-13.0) Eosinophils (%) (Auto) 0.9 % (0.0-8.0) Basophils (%) (Auto) 0.2 % (0.0-5.0) Neutrophils # (Auto) 6.6 K/uL (1.8-7.7) Lymphocytes # (Auto) 0.9 K/uL (1.0-4.8) L Monocytes # (Auto) 0.4 K/uL (0.1-1.0) Eosinophils # (Auto) 0.07 K/uL (0.00-0.70) Basophils # (Auto) 0.02 K/uL (0.00-0.20) Absolute Immature Granulocyte (auto 0.03 K/uL (0-1) Nucleated Red Blood Cells 0.0 % (0.0-0.19) Sodium Level 133 mmol/L (136-145) L Potassium Level 4.2 mmol/L (3.5-5.1) Chloride Level 99 mmol/L (101-111) L Carbon Dioxide Level 23 mmol/L (21-32) Blood Urea Nitrogen 13 mg/dL (7-18) Creatinine 1.0 mg/dL (0.5-1.0) Glomerular Filtration Rate Calc 68 mL/min (>90) Random Glucose 119 mg/dL (70-105) H Total Calcium 9.2 mg/dL (8.5-10.1) Total Bilirubin 0.3 mg/dL (0.2-1.0) Aspartate Amino Transf (AST/SGOT) 34 U/L (10-37) Alanine Aminotransferase (ALT/SGPT) 45 U/L (12-78) Alkaline Phosphatase 137 U/L (50-136) H Total Protein 8.7 g/dL (6.0-8.3) H Albumin 3.6 g/dL (3.5-5.0) Influenza Type A Antigen Negative For Type A Influenza Type B Antigen Negative For Type B SARS-CoV-2 Antigen (Rapid) PRESUMPTIVE NEGATIVE Urine Color YELLOW (YELLOW) Urine Appearance CLOUDY (CLEAR) H Urine pH 6.0 (5.0-8.0) Urine Specific [place] 1.013 (1.001-1.031) Urine Protein 100 mg/dL (NEGATIVE) H Urine Glucose (UA) NEGATIVE mg/dL (NEGATIVE) Urine Ketones NEGATIVE mg/dL (NEGATIVE) Urine Occult Blood LARGE (NEGATIVE) H Urine Nitrate NEGATIVE (NEGATIVE) Urine Bilirubin NEGATIVE mg/dL (NEGATIVE) Urine Urobilinogen 0.2 mg/dL (0.2-1.0) Urine Leukocyte Esterase 500 [place]/uL (NEGATIVE) H Urine RBC TNTC /HPF (0-1) H Urine WBC TNTC /HPF (0-1) H Urine WBC Clumps (Auto) FEW /HPF (0-1) Urine Squamous Epithelial Cells RARE /HPF (0-2) Urine Bacteria None /HPF (None Seen) Urine Hyaline Casts 2-5 /LPF (0-1 /LPF) H Urine Yeast FEW /HPF (None Seen) EKG/XRAY/US/CT/MRI Ultrasound Comment [place] [id number] [id number] IMAGING REPORT Signed PATIENT: GEORGE OLIVA MR#: [id number] : 1975 SEX: F AGE: 49 LOCATION: [facility] ORDER 1204 STATUS: [facility] REPORT#: [id number] SERVICE 1203 REASON: right adnexal ORDERING PHYSICIAN: TRINA HARO MD PROCEDURE: PELVCOMP - US PELVIC NON-OB COMP PELVIC ULTRASOUND INDICATION: right adnexal TECHNIQUE: Pelvic ultrasound was performed by a cloak room attendant and reviewed by a radiologist. FINDINGS: Uterus: 7.6 x 3.9 x 5.1 cm. Unremarkable sonographic appearance. There is a posterior uterine fibroid measuring 1.1 x 1.4 x 1.4 cm. Endometrial complex: 0.3 cm. Right adnexa: 2.9 x 1.4 x 2.1 cm. There is a prominent right ovarian cyst measuring 4.5 x 4.0 x 4.3 cm.. Left adnexa: 2.4 x 1.7 x 1.9 cm. Unremarkable sonographic appearance. Cul-de-sac: Unremarkable. IMPRESSION: Small posterior uterine fibroid Prominent right ovarian simple cyst measuring 4.5 x 4.0 x 3.3 cm FINAL ASSESSMENT: ACR: O-RAD- 2 Almost certainly benign. DICTATED BY: HILARY TAVAREZ MD DATE: 04/13/251419 ELECTRONICALLY SIGNED BY: HILARY TAVAREZ MD DATE: 04/13/251426 CT Scan Comment IMAGING REPORT Signed PATIENT: GEORGE OLIVA MR#: [id number] : 1975 SEX: F AGE: 49 LOCATION: [facility] ORDER 9 STATUS: REG ER REPORT#: [id number] SERVICE 6 REASON: Blood in urine with pain and diarrhea ORDERING PHYSICIAN: IVÁN LANDEROS MD PROCEDURE: ABD PEL WO - CT ABDOMEN/PELVIS W/O CONTRAST CT ABDOMEN/PELVIS W/O CONTRAST REASON: Blood in urine with pain and diarrhea COMPARISON: None. FINDINGS: Lung bases are clear. There are no focal liver lesions. There are normal-appearing kidneys.. The right kidney has a nephroureteral stent with the proximal loop within the right renal pelvis the distal loop in urinary bladder. There is no evidence of any obstructive uropathy.. Spleen and pancreas appear unremarkable. The gallbladder appears normal as well. Right lower abdomen there is a cystic lesion measuring 5.8 x 3.7 cm. Bowel loops appear unremarkable. This includes normal appearance of the appendix There is no evidence of free fluid or intraperitoneal air. There are no focal fluid collections. Aorta demonstrates atherosclerotic changes with calcified plaque extends into both iliac artery. The Retroperitoneum appear normal as do pelvic soft tissue structures. The anterior abdominal wall is intact. Osseous structures appear unremarkable. There is osteoarthritic changes and disc disease involving lower thoracic and upper lumbar spine. The [employer] structures appears to be normal there is no mass or free fluid seen. IMPRESSION: 1. No acute process seen a CT of the abdomen and pelvis without intravenous contrast 2. There is a right-sided nephroureteral stent with the proximal loop in the right renal pelvis distal loop in urinary bladder. 3. There is a cystic lesion seen in the right lower abdomen measuring 5.8 x 3.7 cm. This appears not to be an adnexal lesion.. CT was performed with one or more following dose reduction techniques: automated exposure control, adjustment of the mA and kv according to patient's size, or use of a iterative reconstruction technique. DICTATED BY: HILARY TAVAREZ MD DATE: 04/13/25 1136 ELECTRONICALLY SIGNED BY: HILARY TAVAREZ MD DATE: 04/13/25 1142 MDM MDM: Differential diagnosis: Multiple complaints, URI, abdominal discomfort, ovarian cyst,uti Rationale: Tests considered and ordered secondary to shared decision making include: Previous outside records reviewed: Old ER visits. Risk of complication and/or morbidity or mortality of patient management: None Medications-Per medication reconciliation Need for hospitalization: Patient does not meet criteria for hospitalization. Need for emergency major/minor surgery: No Patient is a 49-year-old female coming in with multiple complaints. Per patient he was she was exposed to viral infection from grandson. She also states that she has a nephrostomy tube in his here for further evaluation. Imaging studies needed to be performed due to the initial complaint of nephrostomy tube discomfort on the nephrostomy tube of the which was placed this showed patency but it did disclose ovarian cyst. Because the ovarian cyst was large with the had to rule out ovarian torsion due to the discomfort she presented with. Imaging studies has been negative. Patient will be discharged in stable condition with a diagnosis of a nephrostomy tube evaluation with the URI. ED Course Orders Procedure Category Date Status Time Cbc With Differential LAB 04/13/25 Complete 09:37 Comprehensive LAB 04/13/25 Complete Metabolic Panel 09:37 Influenza Type A & B, LAB 04/13/25 Complete Rapid 09:37 Covid19 (Sars Antigen LAB 04/13/25 Complete Rapid) 09:37 Urinalysis LAB 04/13/25 Complete W/Microscopic 09:37 Ondansetron 4mg Inj PHA 04/13/25 Complete (Zofran 4mg Inj) 10:00 0.9% Nacl 500ml PHA 04/13/25 In Process Iv.Soln (Ns 500ml 10:00 Ketorolac PHA 04/13/25 Complete Tromethamine 30mg/Ml 10:00 Ct Abdomen/Pelvis W/O CT 04/13/25 Resulted Contrast 09:37 Us Pelvic Non-Ob Comp US 04/13/25 Resulted 12:03 Culture Urine DAMIEN 04/13/25 In Process 15:19 Ceftriaxone 1g Vial PHA 04/13/25 Transmitted (Rocephine 1g Inj) 16:00 Current Medications Medications (Trade) Dose Ordered Sig/Nuria Route PRN Reason Start Time Stop Time Status Last Admin Dose Admin Ketorolac Tromethamine (toRADol) 30 mg ONCE ONCE IM 04/13/25 10:00 04/13/25 10:01 DC 04/13/25 12:53 Ondansetron HCl (zoFRAN 4MG INJ) 4 mg ONCE ONCE IVP 04/13/25 10:00 04/13/25 10:01 DC 04/13/25 12:53 Sodium Chloride 500 ml @ 0 mls/hr Q0M IV 04/13/25 10:00 05/13/25 09:59 04/13/25 12:54 Vital Signs Date Time Temp Pulse Resp B/P (MAP) Pulse Ox O2 Delivery O2 Flow Rate FiO2 04/13/25 12:35 98.8 74 18 134/76 97 Room Air* 0 21 04/13/25 09:20 100.0 108 20 132/76 95 Room Air DX & DISP Disposition: Discharge Departure Impression: Primary Impression: Acute viral syndrome Additional Impressions: H/O insertion of nephrostomy tube, Dehydration, UTI (urinary tract infection) Condition: Stable Scripts Cephalexin Monohydrate (Keflex) 500 Mg Cap 1 CAP PO TID for 10 Days, #30 CAP 0 Refills Prov: TRINA HARO MD 04/13/25 Additional Instructions: FOLLOW-UP WITH PRIMARY CARE PROVIDER IN 1 TO 2 DAYS. TAKE MEDICATIONS DIRECTED HERE IN THE EMERGENCY ROOM. OKAY TO CONTINUE HOME MEDICATIONS UNLESS OTHERWISE DISCUSSED DURING YOUR VISIT IN THE EMERGENCY ROOM TODAY. RETURN TO YOUR NEAREST EMERGENCY ROOM IF SYMPTOMS WORSEN OR IF THERE IS NO IMPROVEMENT. CALL 911 IF YOU NEED IMMEDIATE ASSISTANCE. TAKE TYLENOL [id number] NEEDED AND IF NO CONTRAINDICATIONS ARE PRESENT. INCREASE ORAL HYDRATION. A WOUND CULTURE OR URINE CULTURE WAS ORDERED HERE IN THE EMERGENCY ROOM DEPARTMENT PLEASE FOLLOW-UP WITH PRIMARY CARE PROVIDER AND ADVISE THEM TO GET REPORTS FROM OUR FACILITY. IF YOU HAD ANY CRISTIAN WRAP/SPLINTS THAT WERE APPLIED HERE, PLEASE DO NOT REMOVE THEM UNTIL YOU SEE YOUR PRIMARY CARE OR SPECIALTY. Referrals: Referrals: MK MADERA (PCP) Time of Disposition: 14:44 IVÁN LANDEROS MD Apr 13, 2025 10:43 TRINA HARO MD Apr 13, 2025 14:40
--- NOTE | 2025-04-13 11:42 | HMCIMG ---
CT ABDOMEN/PELVIS W/O CONTRAST REASON: Blood in urine with pain and diarrhea COMPARISON: None. FINDINGS: Lung bases are clear. There are no focal liver lesions. There are normal-appearing kidneys.. The right kidney has a nephroureteral stent with the proximal loop within the right renal pelvis the distal loop in urinary bladder. There is no evidence of any obstructive uropathy.. Spleen and pancreas appear unremarkable. The gallbladder appears normal as well. Right lower abdomen there is a cystic lesion measuring 5.8 x 3.7 cm. Bowel loops appear unremarkable. This includes normal appearance of the appendix There is no evidence of free fluid or intraperitoneal air. There are no focal fluid collections. Aorta demonstrates atherosclerotic changes with calcified plaque extends into both iliac artery. The Retroperitoneum appear normal as do pelvic soft tissue structures. The anterior abdominal wall is intact. Osseous structures appear unremarkable. There is osteoarthritic changes and disc disease involving lower thoracic and upper lumbar spine. The [employer] structures appears to be normal there is no mass or free fluid seen. IMPRESSION: 1. No acute process seen a CT of the abdomen and pelvis without intravenous contrast 2. There is a right-sided nephroureteral stent with the proximal loop in the right renal pelvis distal loop in urinary bladder. 3. There is a cystic lesion seen in the right lower abdomen measuring 5.8 x 3.7 cm. This appears not to be an adnexal lesion.. CT was performed with one or more following dose reduction techniques: automated exposure control, adjustment of the mA and kv according to patient's size, or use of a iterative reconstruction technique.
[2025-04-13] MEDS: 0.9% NACL 500ML IV.SOLN 500 ML IV SCH (12:54)
[2025-04-13 13:30] LABS: COVID19 (SARS ANTIGEN RAPID) PRESUMPTIVE NEGATIVE (NEGATIVE); INFLUENZA TYPE A Negative For Type A (NEGATIVE); INFLUENZA TYPE B Negative For Type B (NEGATIVE)
--- NOTE | 2025-04-13 14:17 | NUR ---
pt reminded that urine cup is needed, states she still cant provide sample
--- NOTE | 2025-04-13 14:27 | HMCIMG ---
PELVIC ULTRASOUND INDICATION: right adnexal TECHNIQUE: Pelvic ultrasound was performed by a bulb inspector and reviewed by a radiologist. FINDINGS: Uterus: 7.6 x 3.9 x 5.1 cm. Unremarkable sonographic appearance. There is a posterior uterine fibroid measuring 1.1 x 1.4 x 1.4 cm. Endometrial complex: 0.3 cm. Right adnexa: 2.9 x 1.4 x 2.1 cm. There is a prominent right ovarian cyst measuring 4.5 x 4.0 x 4.3 cm.. Left adnexa: 2.4 x 1.7 x 1.9 cm. Unremarkable sonographic appearance. Cul-de-sac: Unremarkable. IMPRESSION: Small posterior uterine fibroid Prominent right ovarian simple cyst measuring 4.5 x 4.0 x 3.3 cm FINAL ASSESSMENT: ACR: O-RAD- 2 Almost certainly benign.
[2025-04-13 15:12] LABS: APPEARANCE,URINE CLOUDY (CLEAR); GLUCOSE, URINE (UA) NEGATIVE (NEGATIVE); LEUKOCYTE ESTERASE ,URINE 500 Leu/uL (NEGATIVE); NITRATE,URINE NEGATIVE (NEGATIVE); OCCULT BLOOD,URINE LARGE (NEGATIVE)
[2025-04-13 15:29] LABS: SQUAMOUS EPITHELIAL CELL,UR RARE /HPF (0-2); WBC CLUMP FEW /HPF (0-1); YEAST,URINE BUDDING FEW /HPF (None Seen)
[2025-04-13] MEDS ORDERED: CEPH500B PO (15:54)
[2025-04-13 16:19] VITALS: BP 117/68; PULSE 78; RESP 18; TEMP 98.8; O2SAT 96
== END 2025-04-13 16:20 | disposition home or self-care (01) ==
LOC: EDH 09:18
DX: B34.9 Viral infection, unspecified (principal); E86.0 Dehydration; N39.0 Urinary tract infection, site not specified; E78.00 Pure hypercholesterolemia, unspecified; I10 Essential (primary) hypertension; Z90.49 Acquired absence of other specified parts of digestive tract; Z98.51 Tubal ligation status; Z20.822 Contact with and (suspected) exposure to COVID-19
CPT/HCPCS: 99285; 74176; 96365; 76856; 96375; 87426; 80053; 85025; 87086; 87804 ×2; 81001; 36415; 96372; J1885; J7040; J0696; J2405

== ENCOUNTER 2025-04-15 09:44 | Emergency (ER) | payer OTHER ==
[~2025-04-15] VITALS: Ht 157.5 cm; Wt 99.8 kg
[~2025-04-15 09:44] MED LIST changes: +CEPH500B PO
[2025-04-15 09:46] VITALS: TEMP 98.5
[2025-04-15 10:16] LABS: IMMATURE GRANULOCYTE ABSOLUTE 0.02 K/uL (0-1); NUCLEATED RED BLOOD CELLS 0.0 % (0.0-0.19); PLATELET COUNT (AUTO) 435 K/uL (130-400); RED BLOOD CELL COUNT(AUTO) 3.90 MIL/uL (4.00-5.50); RED CELL DISTRIBUTION WIDTH 12.4 % (11.0-15.5); WHITE BLOOD COUNT (AUTO) 6.5 K/uL (4.8-10.8)
--- NOTE | 2025-04-15 10:27 | HMCIMG ---
EXAM: CT Head Without IV contrast. CLINICAL HISTORY: right facial TECHNIQUE: Axial computed tomography images of the head/brain without intravenous contrast. COMPARISON: None provided. FINDINGS: BRAIN: No evidence of acute hemorrhage. No mass lesion. No CT evidence for acute territorial infarct. No midline shift or extra-axial collections. VENTRICLES: No hydrocephalus. ORBITS: The orbits are unremarkable. SINUSES AND MASTOIDS: Right ethmoid and sphenoid sinusitis. The rest of the paranasal sinuses and mastoid air cells are clear. BONES: No fracture. SOFT TISSUES: Unremarkable. IMPRESSION: 1. No acute intracranial findings. /[place]
[2025-04-15 10:30] LABS: INR 0.95 (0.85-1.15)
--- NOTE | 2025-04-15 10:43 | ERN ---
General Chief Complaint: Altered Mental Status Stated Complaint: ALTERED MENTAL STATUS Time Seen by MD: 09:46 Source: patient, EMS History of Present Illness Initial Comments Patient is a 49-year-old female coming in complaining of right-sided weakness. Per family member patient woke up like this along with the weakness he has presented with a difficulty speaking. Patient was recently diagnosed with a urinary tract infection and has a nephrostomy tube secondary to kidney stone. Allergies: Coded Allergies: No Known Allergies (Unverified Allergy, Unknown, 02/26/17) Home Meds Active Scripts Cephalexin Monohydrate (Keflex) 500 Mg Cap, 1 CAP PO TID for 10 Days, #30 CAP 0 Refills Prov:TRINA HARO MD 04/13/25 Reported Medications Losartan Potassium (Losartan Potassium) 50 Mg Tablet, 50 MG PO HS, TAB 05/30/24 Atorvastatin Calcium (Atorvastatin Calcium) 20 Mg Tablet, 20 MG PO HS, TAB 04/07/19 Past Medical History Past Medical History: High Cholesterol, Hypertension, Kidney Stone Medical History Other: OVARIAN CYST Past Surgical History: Appendectomy, Other Surgical History Other: UTERUS ABLATION; TUBAL LIGATION Family History Family History: Negative Social History Social History: Negative Female( History) History: Not Applicable ROS Dictation CONSTITUTIONAL: No chills, no fever, no weakness, no diaphoresis, no malaise. HEAD/FACE: No signs of trauma. EENT: No eye pain, no blurred vision, no tearing, no double vision, no ear kaylin n, no ear discharge, no nose pain, no nasal congestion, no throat pain, no throat swelling, no mouth pain. RESPIRATORY: No cough, no orthopnea, no SOB, no stridor, no wheezing. CARDIOVASCULAR: No chest pain, no edema, no palpitations, no syncope. GASTROINTESTINAL/ABDOMINAL: No abdominal pain, no constipation, no diarrhea, no nausea, no vomiting. GENITOURINARY: No abnormal discharge, no dysuria, no frequent urination, no hematuria. No complaints of pain in the genitals. MUSCULOSKELETAL: No back pain, no gout, no joint pain, no joint swelling, no muscle pain, no muscle stiffness, no neck pain. INTEGUMENTARY: No change in color, no change in hair/nails, no dryness, no lesion, no lumps, no rash. NEUROLOGICAL/PSYCH: No anxiety, not depressed, no emotional problem, no headache, no numbness, no pre-existing deficit, no history of seizures, no tremors, no weakness. HEMATOLOGIC/LYMPHATIC: Not anemic, no history of blood clots, no apparent bleeding, no bruising, glands not swollen. All Systems Negative, Except as Noted. Physical Exam Physical Exam Dictation VITAL SIGNS: Reviewed. GENERAL APPEARANCE: Alert, oriented x3, no acute distress, obese. HEAD AND FACE: Non-traumatic. EYES: PERRL, pink conjunctivas, eyelid no trauma, anterior chamber clear. EARS: Pinnas intact and no signs of trauma or erythema. Ear canals clear and no discharge. TMs no erythema. NOSE: No discharge, no bleeding. OROPHARYNX: Mouth normal, teeth no caries, tongue pink. Pharynx clear, no erythema. Tonsils no exudates, no abscesses noted. Mucous membrane moist. NECK: Supple, non-tender, no thyromegaly, no masses, no JVD, no bruits. BREAST: Deferred. CHEST: No tenderness, no crepitus, no paradoxical movement, no retractions. LUNGS: Clear, well-ventilated, symmetric, no rales, no wheezing, no rhonchi, no stridor, good breath sounds bilaterally. HEART: Regular rate, regular rhythm, no murmur, no gallops. VASCULAR: No peripheral edema. ABDOMEN: Soft, positive bowel sounds, nondistended, no guarding, nontender, no rebound, no masses no hepatomegaly, no splenomegaly, no Ramos's sign, no hernias. RECTAL: Deferred. GENITAL: Deferred. NEUROLOGICAL: Normal speech, gross motor function intact, gross sensory function intact. MUSCULOSKELETAL: Neck nontender, full range of motion, back nontender, full range of motion. EXTREMITIES: Nontender, full range of motion. SKIN: Color pink, dry, no turgor, no rash, no lacerations, no abrasions, no contusions. LYMPHATICS: Deferred. NIH STROKE SCALE: NIH STROKE SCALE Response (Comments) Value Level of Consciousness Alert 0 Ask patient month and their age Answers both correct 0 Command to open eyes, make fist and let go Obeys both correct 0 Best gaze (horizontal eye movement) Normal 0 Visual Field Testing No Visual Field Loss 0 Facial Paresis Normal / Symmetrical 0 Motor Function - Left Arm Normal 0 Motor Function - Right Arm Drift 1 Motor Function - Left Leg Normal 0 Motor Function - Right Leg Normal 0 Limb Ataxia No Ataxia 0 Sensory-pin prick to arms, legs, trunk and face Normal 0 Best Language (describe picture, name items and read) No Aphasia 0 Extinction and Inattention Inattent/Extinct to one 1 Total Results Laboratory and Microbiology Lab and Micro Result Laboratory Tests Test 04/15/25 09:54 04/15/25 10:02 Whole Blood Glucose 97 MG/DL (70-110) White Blood Count 6.5 K/uL (4.8-10.8) Red Blood Count 3.90 MIL/uL (4.00-5.50) L Hemoglobin 11.3 g/dL (12.0-16.0) L Hematocrit 34.6 % (36-48) L Mean Corpuscular Volume 88.7 fL (79-99) Mean Corpuscular Hemoglobin 29.0 pg (27.0-33.0) Mean Corpuscular Hemoglobin Concent 32.7 g/dL (32.0-36.0) Red Cell Distribution Width 12.4 % (11.0-15.5) Platelet Count 435 K/uL (130-400) H Mean Platelet Volume 9.4 fL (7.5-10.5) Immature Granulocyte % (Auto) 0.3 % (0-1) Neutrophils (%) (Auto) 54.7 % (40.0-77.0) Lymphocytes (%) (Auto) 33.3 % (21.0-51.0) Monocytes (%) (Auto) 8.8 % (3.0-13.0) Eosinophils (%) (Auto) 2.6 % (0.0-8.0) Basophils (%) (Auto) 0.3 % (0.0-5.0) Neutrophils # (Auto) 3.5 K/uL (1.8-7.7) Lymphocytes # (Auto) 2.2 K/uL (1.0-4.8) Monocytes # (Auto) 0.6 K/uL (0.1-1.0) Eosinophils # (Auto) 0.17 K/uL (0.00-0.70) Basophils # (Auto) 0.02 K/uL (0.00-0.20) Absolute Immature Granulocyte (auto 0.02 K/uL (0-1) Segmented Neutrophils % 53 % (40-70) Lymphocytes % (Manual) 34 % (22-44) Monocytes % (Manual) 7 % (2-9) Eosinophils % (Manual) 2 % (1-6) Nucleated Red Blood Cells 0.0 % (0.0-0.19) Differential Comment MANUAL DIFFERENTIAL Reactive Lymphocytes 4 % (0-0) H White Cell Morphology Comment Platelet Morphology Comment SLIGHT INCREASED Red Blood Cell Morphology See comments Prothrombin Time 10.1 SEC (9.6-11.6) Prothromb Time International Ratio 0.95 (0.85-1.15) Activated Partial Thromboplast Time 29.2 SEC (26.3-35.5) Sodium Level 136 mmol/L (136-145) Potassium Level 3.4 mmol/L (3.5-5.1) L Chloride Level 99 mmol/L (101-111) L Carbon Dioxide Level 24 mmol/L (21-32) Blood Urea Nitrogen 9 mg/dL (7-18) Creatinine 0.7 mg/dL (0.5-1.0) Glomerular Filtration Rate Calc 105 mL/min (>90) Random Glucose 98 mg/dL (70-105) Total Calcium 9.3 mg/dL (8.5-10.1) Total Creatine Kinase 46 U/L (21-232) Troponin I High Sensitivity 5 ng/L (4-50) LDL Cholesterol 115 mg/dL (0-99) H Labs Reviewed?: Yes EKG/XRAY/US/CT/MRI EKG Comment 04/15/2024 time 10:44 a.m. Ventricular rate 70 Sinus rhythm [place] [address] wave elevation or depression CT Scan Comment [address] [address] [place] [address] IMAGING REPORT Signed PATIENT: GEORGE LOIVA MR#: [id number] : 1975 SEX: F AGE: 49 LOCATION: ED ORDER 3 STATUS: REG ER REPORT#: [id number] SERVICE REASON: right facial ORDERING PHYSICIAN: TRINA HARO MD PROCEDURE: HEAD WO - CT HEAD/BRAIN W/O CONTRAST EXAM: CT Head Without IV contrast. CLINICAL HISTORY: right facial TECHNIQUE: Axial computed tomography images of the head/brain without intravenous contrast. COMPARISON: None provided. FINDINGS: BRAIN: No evidence of acute hemorrhage. No mass lesion. No CT evidence for acute territorial infarct. No midline shift or extra-axial collections. VENTRICLES: No hydrocephalus. ORBITS: The orbits are unremarkable. SINUSES AND MASTOIDS: Right ethmoid and sphenoid sinusitis. The rest of the paranasal sinuses and mastoid air cells are clear. BONES: No fracture. SOFT TISSUES: Unremarkable. IMPRESSION: 1. No acute intracranial findings. /[place] DICTATED BY: DANNA ARSHAD MD DATE: 04/15/251126 ELECTRONICALLY SIGNED BY: DANNA ARSHAD MD DATE: 04/15/251126 [facility] MDM: Differential diagnosis: Stroke, cva, UTI, Rationale: Tests considered and ordered secondary to shared decision making include: labs, ECG and radiology Previous outside records reviewed: Old ER visits. Risk of complication and/or morbidity or mortality of patient management: None Medications-Per medication reconciliation Need for hospitalization: Patient does meet criteria for hospitalization. Need for emergency major/minor surgery: No There are no social concerns with this patient. Prescription drug management Prescriptions will include symptomatic care Patient's prior external medical records from other ER visits were reviewed by me as indicated. Prior testing and results from previous visits were reviewed. Prior tests were taken into account with medical decision making and resource utilization, independent historian/historians were used to obtain complete medical history. I independently interpreted the test that were performed, results were reviewed by me and considered findings on radiology if ordered. Medical management and examination interpretation discussions were had by me with other qualified healthcare professionals as indicated for the patient's care. Patient who PT transferred to [facility] under the care of Dr. Fely BAHENA MD ED Course Orders Procedure Category Date Status Time Cbc With Differential LAB 04/15/25 Complete 09:52 Prothrombin Time With LAB 04/15/25 Complete INR 09:52 Partial LAB 04/15/25 Complete Thromboplastin Time 09:52 Ct Head/Brain W/O CT 04/15/25 Resulted Contrast 09:52 Chest 1vw RAD 04/15/25 Resulted 09:52 12 Lead Ekg Tracing- EKG 04/15/25 Complete Technical 09:52 Creatine Kinase, Total LAB 04/15/25 Complete 09:52 Ldl Direct LAB 04/15/25 Complete 09:52 Troponin I High LAB 04/15/25 Complete Sensitivity 09:52 Urinalysis Profile LAB 04/15/25 Logged 09:52 Bedside Glucose CPOE 04/15/25 Transmitted Fingerstick 09:52 Basic Metabolic Panel LAB 04/15/25 Complete 09:52 Manual Differential LAB 04/15/25 Complete 10:02 Vital Signs Date Time Temp Pulse Resp B/P (MAP) Pulse Ox O2 Delivery O2 Flow Rate FiO2 04/15/25 12:54 78 20 122/73 97 Room Air* 0 04/15/25 11:23 76 18 134/86 97 Room Air* 0 04/15/25 10:16 70 20 109/65 97 Room Air* 0 04/15/25 09:46 98.4 81 18 140/80 98 Room Air DX & DISP Disposition: Transfer Departure Impression: Primary Impression: [place]ag[place] kidney stones Additional Impressions: Complicated urinary tract infection, CVA (cerebral vascular accident) Condition: Stable Referrals: MK MADERA (PCP) TRINA HARO MD Apr 15, 2025 10:43
[2025-04-15 10:52] LABS: CREATININE 0.7 mg/dL (0.5-1.0); GLOMERULAR FILTR. RATE CALC 105.0 mL/min (>90); GLUCOSE,RANDOM 98.0 mg/dL (70-105); SODIUM SERUM 136.0 mmol/L (136-145); UREA NITROGEN, BLOOD 9.0 mg/dL (7-18)
[2025-04-15 10:57] LABS: CREATINE KINASE, TOTAL 46.0 U/L (21-232); LDL DIRECT 115.0 mg/dL (0-99)
--- NOTE | 2025-04-15 11:12 | HMCIMG ---
EXAM: CR Chest, 1 View. CLINICAL HISTORY: weakness COMPARISON: None provided. FINDINGS: LUNGS: There is no mass, infiltrate, or acute pulmonary abnormality. PLEURAL SPACES: No pleural effusion or pneumothorax. MEDIASTINUM: Cardiac size and mediastinal contours within normal limits. BONES: No aggressive appearing osseous lesion seen. IMPRESSION: No acute cardiopulmonary pathology is evident. /[place]
--- NOTE | 2025-04-15 11:32 | CONS ---
CONSULT NOTE: [facility] Note # Demographics Consult Type: Acute Stroke Level 1 (0-4.5 hrs) Patient Location: Emergency Room First Name: GEORGE Last Name: HAZEL Date of : 1975 Age: 49 Gender: Female Facility: [facility] Time of Initial Page (Central Time): 04/15/2025 09:54 First Contact with Site (Central Time): 04/15/2025 09:55 # HPI History: per ed doc: 49F p/w RUE weakness, aphasia. onset an hour ago. h/o recent UTI and renal stone nephrostomy tube placed last week. per son, pt woke up confused. couldn't say anything. RUE weakness. LKN last night. Last Known Normal: - I have collected independent history specific to time last normal or last known well. We have collaborated with the provider and at this time, we have the most current timeline with the information that is available. LKN last night. # Scores Time of exam and NIHSS (Central Time): 04/15/2025 10:17 Level of Consciousness 1a: [1] = Not alert; but arousable by minor stim LOC Questions 1b: [2] = Answers neither correctly LOC Commands 1c: [0] = Performs both tasks correctly Best Gaze 2: [0] = Normal Visual 3: [0] = No visual loss Facial Palsy 4: [0] = Normal symmetrical movements Motor Arm Left 5a: [2] = Some effort against gravity Motor Arm Right 5b: [2] = Some effort against gravity Motor Leg Left 6a: [2] = Some effort against gravity Motor Leg Right 6b: [2] = Some effort against gravity Limb Ataxia 7: [0] = Absent Sensory 8: [0] = Normal Best Language 9: [0] = No aphasia Dysarthria 10: [1] = [id number] dysarthria Extinction and Inattention 11: [0] = No abnormality NIHSS Total: 12 # PMH-- Past Medical History: - hypertension - Diabetes # Data Time Head CT personally read by me (Central Time): 04/15/2025 10:[address]: - no bleed - preliminarily reviewed by me, please refer to radiology read for official reading # Assessment Impression: - Altered Mental Status Differential Diagnosis: - Ischemic Stroke (Acute) # Plan Thrombolytic/Intervention: Possible IA candidate Thrombolytic Exclusion: > 4.5 hours Possible IA Candidate: - CTA pending - If CTA shows large vessel occlusion, notify neurology and/or neuro- interventional team, per hospital protocol. Labs: - B12 - TSH - ua - Ammonia - hemoglobin A1c - lipid panel - comprehensive metabolic panel Imaging: (urgency: STAT): - CT Angiogram Head and CT Angiogram Neck AND call back with results if abnormal Imaging: (urgency: routine): - MRI Brain without contrast Other: - If patient has any neurological deterioration please call me back immediately - I have discussed my recommendations with the referring provider - would not pursue stroke work-up if MRI is negative Additional Recommendations: metabolic infectious w/u ASA 81 mg . if unable to find etiology-recommend MRi brain. # Logistics Attestation of consult completion: The patient is located at: [facility]. Facility staff participated in the visit. I performed this telemedicine visit from my offsite office utilizing interactive 2 way audio and visual telecommunication technology at the request of the onsite emergency room provider. Total time spent in telemedicine encounter: I spent 15 minutes reviewing clinical data and/or imaging, obtaining history, examining the patient, communicating with the onsite care team, and in preparation of this report. # Demographics First Name: GEORGE Last Name: HAZEL Facility: [facility] KARINA MACIAS MD Apr 15, 2025 11:32
[2025-04-15 11:42] LABS: EOSINOPHILS % (MANUAL) 2 % (1-6); LYMPHOCYTES % (MANUAL) 34 % (22-44); MAN.DIFF COMMENT-IMPRESSION MANUAL DIFFERENTIAL; MONOCYTES % (MANUAL) 7 % (2-9); PLATELET MORPHOLOGY COMMENT SLIGHT INCREASED; REACTIVE LYMPHOCYTES 4 % (0-0); SEGMENTED NEUTROPHILS % 53 % (40-70)
--- NOTE | 2025-04-15 12:07 | NUR ---
Transfer process initiated to [facility] for CVA/stroke workup. Verbal order received from ER-MD.
--- NOTE | 2025-04-15 12:46 | EKG ---
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
--- NOTE | 2025-04-15 13:10 | NUR ---
[facility] HAS APPROVED TRANSFER REQUEST AT THIS TIME. PATIENT TO GO TO ER FOR HIGHER LEVEL OF CARE. ADMIN APPROVED BY DR. LIN.
--- NOTE | 2025-04-15 14:13 | NUR ---
ATTEMPTED TO CALL REPORT TO [facility] AT THIS TIME. NO ANSWER OF NOW.
--- NOTE | 2025-04-15 14:22 | NUR ---
REPORT GIVEN TO JAZMYN DEL CASTILLO AT [facility] [place] AT THIS TIME.
--- NOTE | 2025-04-15 14:27 | NUR ---
[facility] CALLED AT THIS TIME.
[2025-04-15 14:36] VITALS: BP 124/71; PULSE 71; RESP 20; O2SAT 98
--- NOTE | 2025-04-15 14:36 | NUR ---
[facility] AT BEDSIDE AT THIS TIME.
== END 2025-04-15 15:02 | disposition short-term general hospital (02) ==
LOC: EDH 09:44
DX: N20.0 Calculus of kidney (principal); N39.0 Urinary tract infection, site not specified; I63.9 Cerebral infarction, unspecified; E11.9 Type 2 diabetes mellitus without complications; E78.00 Pure hypercholesterolemia, unspecified; I10 Essential (primary) hypertension; Z90.49 Acquired absence of other specified parts of digestive tract; Z98.51 Tubal ligation status
CPT/HCPCS: 36415; 70450; 71045; 80048; 82550; 82948; 83721; 84484; 85025; 85610; 85730; 93005; 99285

== ENCOUNTER → 2025-04-20 | Outpatient (CLI) | payer OTHER ==
[2025-04-20 11:32] LABS: IMMATURE GRANULOCYTE ABSOLUTE 0.03 K/uL (0-1); NUCLEATED RED BLOOD CELLS 0.0 % (0.0-0.19); PLATELET COUNT (AUTO) 505 K/uL (130-400); RED BLOOD CELL COUNT(AUTO) 3.68 MIL/uL (4.00-5.50); RED CELL DISTRIBUTION WIDTH 12.4 % (11.0-15.5); WHITE BLOOD COUNT (AUTO) 7.8 K/uL (4.8-10.8)
[2025-04-20 11:51] LABS: APPEARANCE,URINE CLEAR (CLEAR); GLUCOSE, URINE (UA) NEGATIVE (NEGATIVE); LEUKOCYTE ESTERASE ,URINE LARGE Leu/uL (NEGATIVE); NITRATE,URINE NEGATIVE (NEGATIVE); OCCULT BLOOD,URINE LARGE (NEGATIVE)
[2025-04-20 11:58] LABS: ADD UA MICROSCOPIC YES
[2025-04-20 11:58] LABS: ERYTHROCYTE SEDIMENTATION RATE 71 MM/HR (0-30)
[2025-04-20 12:04] LABS: ASPARTATE AMINOTRANSFERASE 35.0 U/L (10-37); CREATININE 0.8 mg/dL (0.5-1.0); GLOMERULAR FILTR. RATE CALC 89.0 mL/min (>90); GLUCOSE,RANDOM 95.0 mg/dL (70-105); LDL DIRECT 95.0 mg/dL (0-99); SODIUM SERUM 139.0 mmol/L (136-145); TOTAL PROTEIN, SERUM 8.0 g/dL (6.0-8.3); UREA NITROGEN, BLOOD 10.0 mg/dL (7-18)
[2025-04-20 12:15] LABS: SQUAMOUS EPITHELIAL CELL,UR Rare /HPF (0-2)
== END | disposition home or self-care (01) ==
LOC: LAB 10:31
PROVIDERS: ATTEND Nurse Practitioner Family
DX: I10 Essential (primary) hypertension (principal); E78.00 Pure hypercholesterolemia, unspecified; E03.9 Hypothyroidism, unspecified; E55.9 Vitamin D deficiency, unspecified; R53.83 Other fatigue
CPT/HCPCS: 36415; 80053; 80061; 81001; 82306; 83036; 83525; 84439; 84443; 84481; 85025; 85651; 86140; 87086

== ENCOUNTER → 2025-07-18 | Outpatient (CLI) | payer OTHER ==
[2025-07-18 09:02] LABS: IMMATURE GRANULOCYTE ABSOLUTE 0.01 K/uL (0-1); NUCLEATED RED BLOOD CELLS 0.0 % (0.0-0.19); PLATELET COUNT (AUTO) 361 K/uL (130-400); RED BLOOD CELL COUNT(AUTO) 4.40 MIL/uL (4.00-5.50); RED CELL DISTRIBUTION WIDTH 13.8 % (11.0-15.5); WHITE BLOOD COUNT (AUTO) 5.5 K/uL (4.8-10.8)
[2025-07-18 09:11] LABS: APPEARANCE,URINE CLOUDY (CLEAR); GLUCOSE, URINE (UA) NEGATIVE (NEGATIVE); LEUKOCYTE ESTERASE ,URINE 500 Leu/uL (NEGATIVE); NITRATE,URINE NEGATIVE (NEGATIVE); OCCULT BLOOD,URINE SMALL (NEGATIVE)
[2025-07-18 09:17] LABS: ADD UA MICROSCOPIC YES
[2025-07-18 09:22] LABS: ERYTHROCYTE SEDIMENTATION RATE 87 MM/HR (0-30)
[2025-07-18 09:28] LABS: ASPARTATE AMINOTRANSFERASE 29.0 U/L (10-37); CREATININE 0.8 mg/dL (0.5-1.0); GLOMERULAR FILTR. RATE CALC 89.0 mL/min (>90); GLUCOSE,RANDOM 99.0 mg/dL (70-105); LDL DIRECT 134.0 mg/dL (0-99); SODIUM SERUM 140.0 mmol/L (136-145); TOTAL PROTEIN, SERUM 8.5 g/dL (6.0-8.3); UREA NITROGEN, BLOOD 16.0 mg/dL (7-18)
[2025-07-18 09:32] LABS: OTHER CASTS, URINE 1 /LPF (None Seen); SQUAMOUS EPITHELIAL CELL,UR MOD /HPF (0-2)
[2025-07-18 10:10] LABS: % IRON SATURATION 16.0 % (22-44); IRON, SERUM 50.0 mcg/dL (50-170)
== END | disposition home or self-care (01) ==
LOC: LAB 08:35
PROVIDERS: ATTEND Nurse Practitioner Family
DX: I10 Essential (primary) hypertension (principal); E03.9 Hypothyroidism, unspecified; E55.9 Vitamin D deficiency, unspecified; R53.82 Chronic fatigue, unspecified; N20.0 Calculus of kidney; E78.00 Pure hypercholesterolemia, unspecified; N95.1 Menopausal and female climacteric states; D64.9 Anemia, unspecified
CPT/HCPCS: 36415; 80053; 80061; 81001; 82306; 82728; 82746; 83036; 83525; 83540; 83550; 83735; 84439; 84443; 85025; 85045; 85651; 87086